=== PATIENT | male | born 1965 | race Caucasian/White ===

== ENCOUNTER 2016-08-04 10:23 | Emergency (ER) | payer MEDICAID ==
--- NOTE | 2016-08-04 10:35 | ER Document Report ---
ED Medical Screen (RME) - General Stated Complaint: BACK AND RIB PAIN Notes: patient states he woke up at 2am today with right flank pain. denies pyuria, hematuria. Denies h/o kidney problems, kidney stones. denies trauma, accident, fall. Took tramadol for pain this am at 2am and 7am. denies heavy lifting, moving furniture. denies UI, SI, saddle anesthesia Peripheral neuropathy, DM I have greeted and performed a rapid initial assessment of this patient. A comprehensive ED assessment and evaluation of the patient, analysis of test results and completion of the medical decision making process will be conducted by additional ED providers. TRAVEL OUTSIDE OF THE [place] IN LAST 30 DAYS: No - Related Data Allergies/Adverse Reactions: naproxen Allergy (Mild, Verified 06/06/16 11:45) Hives gabapentin Allergy (Verified 08/04/16 10:31) Past Medical History - Past Medical History Cardiac Medical History: Reports: Hx Coronary Artery Disease, Hx Heart Attack, Hx Hypertension Denies: Hx Congestive Heart Failure, Hx Hypercholesterolemia Pulmonary Medical History: Reports: Hx COPD Past Surgical History: Reports: Hx Cardiac Catheterization, Hx Cardiac Surgery - CABG, STENTS, Hx Coronary Artery Bypass Graft - Three-vessel bypass on 2013, Hx Coronary Stent - Patient received stents before and after his bypass surgery, Hx Orthopedic Surgery - L KNEE arthroscopic surgery 2 Physical Exam - Vital signs Vitals: Temp Pulse Resp BP Pulse Ox 97.3 F 70 16 119/77 98 08/04/16 10:28 08/04/16 10:28 08/04/16 10:08/04/16 10:28 08/04/16 10:28 Course - Vital Signs Vital signs: Temp Pulse Resp BP Pulse Ox 97.3 F 70 16 119/77 98 08/04/16 10:28 08/04/16 10:28 08/04/16 10:28 08/04/16 10:28 08/04/16 10:28
[2016-08-04 11:01] LABS: APPEARANCE,URINE SLIGHTLY-CLOUDY; BILIRUBIN,URINE NEGATIVE (NEGATIVE); GLUCOSE, URINE NEGATIVE (NEGATIVE); KETONES,URINE NEGATIVE (NEGATIVE); LEUKOCYTE ESTERASE,URINE NEGATIVE (NEGATIVE); NITRITE,URINE NEGATIVE (NEGATIVE); PROTEIN,URINE 100 mg/dL (NEGATIVE); URINE SPECIFIC GRAVITY 1.021; UROBILINOGEN,URINE NEGATIVE mg/dL (<2.0)
--- NOTE | 2016-08-04 14:26 | ER Document Report ---
ED General - General Chief Complaint: Back Pain Stated Complaint: BACK AND RIB PAIN Mode of Arrival: Ambulatory Information source: Patient Notes: Patient is a 50 yo male who presents with right mid back pain that started suddenly this morning at 2 AM. He states he got up to urinate but this did not relieve the pain. He states he took a tramadol at 2 AM which did ease the pain but it returned around 7 AM so he took another tramadol. He states he has had pain like this before but it has not lasted this long. He also reports an episode of dizziness while getting outpatient lab work done because his doctor was concerned about his potassium - his follow-up is on Monday of next week. Denies fever, chills, headaches, changes in vision, chest pain, SOB, abdominal pain, n/v/d, pyuria, hematuria, dysuria. TRAVEL OUTSIDE OF THE [place] IN LAST 30 DAYS: No - Related Data Allergies/Adverse Reactions: naproxen Allergy (Mild, Verified 06/06/16 11:45) Hives gabapentin Allergy (Verified 08/04/16 10:31) Past Medical History - Social History Smoking Status: Never Smoker Chew tobacco use (# tins/day): No Frequency of alcohol use: None Drug Abuse: None Family History: Reviewed & Not Pertinent Patient has suicidal ideation: No Patient has homicidal ideation: No - Past Medical History Cardiac Medical History: Reports: Hx Coronary Artery Disease, Hx Heart Attack, Hx Hypertension Denies: Hx Congestive Heart Failure, Hx Hypercholesterolemia Pulmonary Medical History: Reports: Hx COPD Renal/ Medical History: Denies: Hx Peritoneal Dialysis Past Surgical History: Reports: Hx Cardiac Catheterization, Hx Cardiac Surgery - CABG, STENTS, Hx Coronary Artery Bypass Graft - Three-vessel bypass on 2013, Hx Coronary Stent - Patient received stents before and after his bypass surgery, Hx Orthopedic Surgery - L KNEE arthroscopic surgery 2 Review of Systems - Review of Systems Constitutional: See HPI EENT: No symptoms reported Cardiovascular: No symptoms reported Respiratory: No symptoms reported Gastrointestinal: No symptoms reported Genitourinary: No symptoms reported Male Genitourinary: No symptoms reported Musculoskeletal: See HPI Skin: No symptoms reported Hematologic/Lymphatic: No symptoms reported Neurological/Psychological: See HPI Physical Exam - Vital signs Vitals: Temp Pulse Resp BP Pulse Ox 97.3 F 70 16 119/77 98 08/04/16 10:28 08/04/16 10:28 08/04/16 10:28 08/04/16 10:28 08/04/16 10:28 Interpretation: Normal - Notes Notes: PHYSICAL EXAM: CONSTITUTIONAL: Alert and oriented, well-appearing and in no acute distress. Appears comfortable. HENT: Normocephalic, atraumatic. Moist mucous membranes. EYES: Pupils equal round and reactive to light, EOM intact. Sclera anicteric, conjunctiva are normal. No entrapment. NECK: supple without lymphadenopathy. ROM intact. HEART: Regular rate and rhythm without murmurs. LUNGS: CTAB and equal. No wheezes, rales or rhonchi. GI: Normactive bowel sounds. Nontender, non-distended. No organomegaly. no CVAT. BACK: tender to palpation in mid thoracic musculature with paraspinous spasm, 5+ /5 strengths, DTRs 2+, SLR -. EXTREMITIES: Normal range of motion, no pitting edema. No cyanosis. Cap Refill < 3 seconds. NEURO: Cranial nerves grossly intact. Normal sensory/motor exams. PSYCH: Normal mood, normal affect. SKIN: Warm and dry. Normal turgor. No rashes or lesions noted. Course - Re-evaluation Re-evalutation: 08/04/16 16:07 Patient seen and examined. No neuro deficits, muscles spasms noted to mid- thoracic right side musculature. No midline tenderness. Based on exam, low suspicion for cauda equine syndrome or central canal syndrome. Given PO robaxin here. lab work obtained - CBC/BMP unremarkable. UA unremarkable. Discussed results with patient. Discharged home in stable condition. Follow-up with PMD. - Vital Signs Vital signs: Temp Pulse Resp BP Pulse Ox 97.3 F 70 16 119/77 98 08/04/16 10:28 08/04/16 10:28 08/04/16 14:34 08/04/16 10:28 08/04/16 10:28 - Laboratory Result Diagrams: 08/04/16 14:40 08/04/16 14:40 Laboratory results interpreted by me: 08/04/16 08/04/16 10:40 14:40 RBC 3.91 L Hgb 12.5 L Hct 36.5 L RDW 16.0 H Urine Protein 100 H Discharge - Discharge Clinical Impression: Muscle spasm of back Back pain Qualifiers: Back pain location: thoracic back pain Chronicity: acute Back pain laterality: right Qualified Code(s): M54.6 - Pain in thoracic spine Condition: Stable Disposition: HOME, SELF-CARE Additional Instructions: Continue to take tramadol as directed. LOW BACK PAIN: Three out of every four people will have an episode of disabling back pain during their lifetime. Most commonly the pain is due to straining of the muscles and ligaments in the low back. Usual treatment includes: (1) Rest on a firm surface. Avoid lying on your stomach. (2) Ice pack the painful area. After a few days, gentle heat may be used intermittently to relax the area, or ice packs can be continued. (3) Medication may be needed -- muscle relaxers and antiinflammatory medicines are commonly used. (4) As the back improves, exercises are prescribed to strengthen the back and abdominal muscles. Your doctor will advise you on the proper care for your back at each stage in your recovery. You may be better in a few days -- or healing may take several weeks. If new symptoms of a "herniated disc" (radiation of pain, numbness, or tingling down the back of the leg or weakness in the leg) occur, you should be re-examined. Further testing may be necessary. MUSCLE RELAXERS: Muscle relaxing medications are usually prescribed for acute muscle spasm or injury to the neck and back. They are often combined with antiinflammatory pain medication for increased relief. You may stop the muscle relaxer when the pain and stiffness have improved. Start the medication again if spasms recur. Muscle relaxers may cause drowsiness, especially with the first dose. Do not operate machinery or drive while under the effects of the medication. Most muscle relaxers last up to 24 hours. Do not combine the medication with alcohol. ICE PACKS: Apply ice packs frequently against the painful area. Many different schedules are recommended, such as "20 minutes on, 20 minutes off" or "one hour ice, two hours rest." If you need to work, you may need to go longer between ice treatments. You should plan to have the area ice packed AT LEAST one fourth of the time. The ice should be applied over the wrap, tape, or splint, or over a layer of cloth -- not directly against the skin. Some ice bags have a built-in cloth and can be put directly on the skin. WARM PACKS: After approximately two days, apply gentle heat (such as a heating pad or hot water bottle) for about 20 to 30 minutes about every two hours -- at least four times daily. Warmth and elevation will help you make a more rapid recovery , and will ease the pain considerably. Do not use HOT heat, and never apply heat for longer than 30 minutes. The continuous heat can invisibly damage skin and muscles -- even when no burn is seen on the surface. Damaged muscles can make you MORE sore. FOLLOW-UP CARE: If you have been referred to a physician for follow-up care, call the physician s office for an appointment as you were instructed or within the next two days. If you experience worsening or a significant change in your symptoms, notify the physician immediately or return to the Emergency Department at any time for re-evaluation. Prescriptions: Methocarbamol [Robaxin 500 mg Tablet] 500 mg PO TID #20 tablet Referrals: CHICHO GREEN MD [Primary Care Provider] - Follow up in 3-5 days
[2016-08-04 14:58] LABS: ABSOLUTE BASOPHILS # (AUTO) 0.1 10^3/uL (0.0-0.2); ABSOLUTE EOSINOPHILS # (AUTO) 0.1 10^3/uL (0.0-0.6); ABSOLUTE LYMPHOCYTES (AUTO) 1.2 10^3/uL (0.5-4.7); ABSOLUTE MONOCYTES (AUTO) 0.5 10^3/uL (0.1-1.4); ABSOLUTE NEUT (AUTO) 3.7 10^3/uL (1.7-8.2); BASOPHILS % (AUTO) 1.1 % (0-2); EOSINOPHILS % (AUTO) 2.6 % (0-6); HEMATOCRIT 36.5 % (37.9-51.0); HEMOGLOBIN 12.5 g/dL (13.5-17.0); LYMPHOCYTES % (AUTO) 20.8 % (13-45); MEAN CORPUSCULAR HEMOGLOBIN 31.9 pg (27.0-33.4); MEAN CORPUSCULAR HGB CONC 34.2 g/dL (32.0-36.0); MEAN CORPUSCULAR VOLUME 93 fl (80-97); MONOCYTES % (AUTO) 9.1 % (3-13); RED BLOOD COUNT 3.91 10^6/uL (4.35-5.55); SEGMENTED NEUTROPHILS % (AUTO) 66.4 % (42-78); WHITE BLOOD COUNT 5.6 10^3/uL (4.0-10.5)
[2016-08-04] MEDS ORDERED: METHOCARBAMOL 500 MG TABLET PO ONE (15:17)
[2016-08-04 15:22] LABS: ANION GAP 10 (5-19); BLOOD UREA NITROGEN 16 mg/dL (7-20); CALCIUM 9.4 mg/dL (8.4-10.2); CARBON DIOXIDE 27 mmol/L (22-30); CHLORIDE 101 mmol/L (98-107); GLUCOSE 93 mg/dL (75-110); POTASSIUM 4.5 mmol/L (3.6-5.0); SODIUM 138.1 mmol/L (137-145)
[2016-08-04 17:08] VITALS: BP 120/78
== END 2016-08-04 17:08 | disposition home or self-care (01) ==
LOC: ER 10:23
DX: M62.830 Muscle spasm of back (principal); M54.6 Pain in thoracic spine; R42 Dizziness and giddiness; I25.10 Atherosclerotic heart disease of native coronary artery without angina pectoris; I25.2 Old myocardial infarction; I10 Essential (primary) hypertension; Z88.8 Allergy status to other drugs, medicaments and biological substances; Z88.6 Allergy status to analgesic agent; J44.9 Chronic obstructive pulmonary disease, unspecified; Z95.1 Presence of aortocoronary bypass graft; Z98.61 Coronary angioplasty status
CPT/HCPCS: 99283; 36415; 85025; 80048; 81001; 72070; J3490

== ENCOUNTER → 2016-08-04 | Outpatient (CLI) | payer MEDICAID ==
[2016-08-04 11:30] LABS: ANION GAP 12 (5-19); BLOOD UREA NITROGEN 16 mg/dL (7-20); CALCIUM 9.6 mg/dL (8.4-10.2); CARBON DIOXIDE 25 mmol/L (22-30); CHLORIDE 101 mmol/L (98-107); CREATININE RESULT 0.92 mg/dL (0.52-1.25); GLUCOSE 95 mg/dL (75-110); POTASSIUM 5.4 mmol/L (3.6-5.0); SODIUM 137.9 mmol/L (137-145)
== END ==
LOC: OD 09:41
PROVIDERS: ATTEND Physician Assistant
DX: E87.5 Hyperkalemia (principal)
CPT/HCPCS: 36415; 80048

== ENCOUNTER 2016-09-16 10:08 | Emergency (ER) | payer MEDICAID ==
[2016-09-16] MEDS ORDERED: ASPIRIN 81 MG TABLET, CHEWABLE PO ONE (10:41)
--- NOTE | 2016-09-16 10:43 | ER Document Report ---
ED Medical Screen (RME) - General Stated Complaint: CHEST PAIN Notes: Patient complains of chest pain with shortness of breath that started this morning. He also complains of disorientation. Does have a history of heart problems. Patient is diabetic and has a history of high blood pressure. Last FL was in 2013. History of bypass surgery. Patient took 81 mg aspirin this morning. I have greeted and performed a rapid initial assessment of this patient. A comprehensive ED assessment and evaluation of the patient, analysis of test results and completion of the medical decision making process will be conducted by additional ED providers. TRAVEL OUTSIDE OF THE [place] IN LAST 30 DAYS: No - Related Data Allergies/Adverse Reactions: naproxen Allergy (Mild, Verified 09/16/16 10:40) trouble breathing OSCAR Inhibitors Allergy (Verified 09/16/16 10:40) cough gabapentin Allergy (Verified 09/16/16 10:40) Hallucinations Past Medical History - Past Medical History Cardiac Medical History: Reports: Hx Coronary Artery Disease, Hx Heart Attack, Hx Hypertension Denies: Hx Congestive Heart Failure, Hx Hypercholesterolemia Pulmonary Medical History: Reports: Hx COPD Renal/ Medical History: Denies: Hx Peritoneal Dialysis Past Surgical History: Reports: Hx Cardiac Catheterization, Hx Cardiac Surgery - CABG, STENTS, Hx Coronary Artery Bypass Graft - Three-vessel bypass on 2013, Hx Coronary Stent - Patient received stents before and after his bypass surgery, Hx Orthopedic Surgery - L KNEE arthroscopic surgery 2 Physical Exam - Vital signs Vitals: Temp Pulse Resp BP Pulse Ox 98.6 F 73 20 147/95 H 95 09/16/16 10:36 09/16/16 10:36 09/16/16 10:36 09/16/16 10:36 09/16/16 10:36 - Cardiovascular Rhythm: Regular Heart sounds: Normal auscultation Course - Vital Signs Vital signs: Temp Pulse Resp BP Pulse Ox 98.6 F 73 20 147/95 H 95 09/16/16 10:36 09/16/16 10:36 09/16/16 10:36 09/16/16 10:36 09/16/16 10:36
--- NOTE | 2016-09-16 10:59 | EKG REPORT ---
SEVERITY:- ABNORMAL ECG - SINUS RHYTHM : Confirmed by: Reed Pedroza 16-Sep-2016 10:58:52
[2016-09-16 11:17] LABS: ABSOLUTE EOSINOPHILS # (AUTO) 0.1 10^3/uL (0.0-0.6); ABSOLUTE LYMPHOCYTES (AUTO) 1.1 10^3/uL (0.5-4.7); ABSOLUTE MONOCYTES (AUTO) 0.5 10^3/uL (0.1-1.4); ABSOLUTE NEUT (AUTO) 4.1 10^3/uL (1.7-8.2); BASOPHILS % (AUTO) 0.8 % (0-2); EOSINOPHILS % (AUTO) 1.8 % (0-6); HEMATOCRIT 36.5 % (37.9-51.0); HEMOGLOBIN 12.5 g/dL (13.5-17.0); LYMPHOCYTES % (AUTO) 19.4 % (13-45); MEAN CORPUSCULAR HEMOGLOBIN 32.1 pg (27.0-33.4); MEAN CORPUSCULAR HGB CONC 34.3 g/dL (32.0-36.0); MEAN CORPUSCULAR VOLUME 94 fl (80-97); RED BLOOD COUNT 3.89 10^6/uL (4.35-5.55); RED CELL DISTRIBUTION WIDTH 15.1 % (11.5-14.0); WHITE BLOOD COUNT 5.9 10^3/uL (4.0-10.5)
[2016-09-16 11:26] LABS: PROTHROMBIN TIME 13.3 SEC (11.4-15.4)
[2016-09-16 11:50] LABS: ANION GAP 12 (5-19)
[2016-09-16 11:51] LABS: ALANINE AMINOTRANSFERASE 35 U/L (21-72); ALBUMIN 4.5 g/dL (3.5-5.0); ALKALINE PHOSPHATASE 72 U/L (38-126); ASPARTATE AMINO TRANSFERASE 22 U/L (17-59); BILIRUBIN,DIRECT 0.2 mg/dL (0.0-0.4); BLOOD UREA NITROGEN 13 mg/dL (7-20); CALCIUM 9.4 mg/dL (8.4-10.2); CARBON DIOXIDE 24 mmol/L (22-30); CHLORIDE 103 mmol/L (98-107); CREATINE KINASE 64 U/L (55-170); CREATININE RESULT 0.72 mg/dL (0.52-1.25); GLUCOSE 99 mg/dL (75-110); POTASSIUM 4.6 mmol/L (3.6-5.0); SODIUM 139.3 mmol/L (137-145); TOTAL PROTEIN 7.7 g/dL (6.3-8.2)
[2016-09-16 11:57] LABS: CREATINE KINASE MB 0.61 ng/mL (<4.55)
[2016-09-16 11:59] LABS: TROPONIN I < 0.012 ng/mL
[2016-09-16 13:48] LABS: APPEARANCE,URINE CLEAR; BILIRUBIN,URINE NEGATIVE (NEGATIVE); GLUCOSE, URINE NEGATIVE (NEGATIVE); KETONES,URINE NEGATIVE (NEGATIVE); LEUKOCYTE ESTERASE,URINE NEGATIVE (NEGATIVE); NITRITE,URINE NEGATIVE (NEGATIVE); PROTEIN,URINE 30 mg/dL (NEGATIVE); UROBILINOGEN,URINE NEGATIVE mg/dL (<2.0)
--- NOTE | 2016-09-16 13:54 | ER Document Report ---
ED General - General Chief Complaint: Chest Pain Stated Complaint: CHEST PAIN TRAVEL OUTSIDE OF THE [place] IN LAST 30 DAYS: No - Related Data Allergies/Adverse Reactions: naproxen Allergy (Mild, Verified 09/16/16 10:40) trouble breathing OSCAR Inhibitors Allergy (Verified 09/16/16 10:40) cough gabapentin Allergy (Verified 09/16/16 10:40) Hallucinations Past Medical History - Social History Smoking Status: Current Every Day Smoker Chew tobacco use (# tins/day): No Frequency of alcohol use: None Drug Abuse: None Family History: Reviewed & Not Pertinent Patient has suicidal ideation: No Patient has homicidal ideation: No - Past Medical History Cardiac Medical History: Reports: Hx Coronary Artery Disease, Hx Heart Attack, Hx Hypertension Denies: Hx Congestive Heart Failure, Hx Hypercholesterolemia Pulmonary Medical History: Reports: Hx COPD Renal/ Medical History: Denies: Hx Peritoneal Dialysis Past Surgical History: Reports: Hx Cardiac Catheterization, Hx Cardiac Surgery - CABG, STENTS, Hx Coronary Artery Bypass Graft - Three-vessel bypass on 2013, Hx Coronary Stent - Patient received stents before and after his bypass surgery, Hx Orthopedic Surgery - L KNEE arthroscopic surgery 2 Physical Exam - Vital signs Vitals: Temp Pulse Resp BP Pulse Ox 98.6 F 73 20 147/95 H 95 09/16/16 10:36 09/16/16 10:36 09/16/16 10:36 09/16/16 10:36 09/16/16 10:36 Course - Re-evaluation Re-evalutation: 09/16/16 13:59 Given that 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 The patient and I have discussed the diagnosis and risks , and we agree with discharging home with close follow-up. We also discussed returning to the Emergency Department immediately if new or worsening symptoms occur. We have discussed the symptoms which are most concerning (e.g., bloody sputum, worsening pain or shortness of breath) that necessitate immediate return. - Vital Signs Vital signs: Temp Pulse Resp BP Pulse Ox 98.6 F 73 16 133/80 H 96 09/16/16 10:36 09/16/16 10:36 09/16/16 13:01 09/16/16 13:01 09/16/16 13:01 - Laboratory Result Diagrams: 09/16/16 10:57 09/16/16 10:57 Laboratory results interpreted by me: 09/16/16 09/16/16 10:57 13:35 RBC 3.89 L Hgb 12.5 L Hct 36.5 L RDW 15.1 H Urine Protein 30 H - Diagnostic Test Radiology reviewed: Image reviewed, Reports reviewed - EKG Interpretation by Me EKG shows normal: Sinus rhythm, [place], Intervals, QRS Complexes Discharge - Discharge Clinical Impression: Shortness of breath Chest pain Qualifiers: Chest pain type: unspecified Qualified Code(s): R07.9 - Chest pain, unspecified Condition: Stable Disposition: HOME, SELF-CARE Instructions: Chest Pain of Unclear Cause ([facility]) Referrals: CHICHO GREEN MD [Primary Care Provider] - Follow up tomorrow
[2016-09-16 15:06] VITALS: BP 149/82
== END 2016-09-16 15:06 | disposition home or self-care (01) ==
LOC: ER 10:08
DX: R07.9 Chest pain, unspecified (principal); R06.02 Shortness of breath; F17.200 Nicotine dependence, unspecified, uncomplicated
CPT/HCPCS: 36415; 71010; 80053; 81001; 82550; 82553; 84484; 85025; 85610; 93005; 93010; 99285

== ENCOUNTER → 2016-11-17 | Outpatient (CLI) | payer MEDICAID ==
--- NOTE | 2016-11-17 15:01 | RADIOLOGY REPORT (SQ) ---
EXAM DESCRIPTION: CTA CHEST COMPLETED DATE/TIME: 11/17/2016 2:25 pm REASON FOR STUDY: SOB (R06.02) R06.02 SHORTNESS OF BREATH COMPARISON: None. TECHNIQUE: CT scan of the chest performed using helical scanning technique with dynamic intravenous contrast injection. Images reviewed with lung, soft tissue and bone windows. Reconstructed coronal and sagittal MPR images reviewed. Additional 3 dimensional post-processing performed to develop Maximal Intensity Projection images ([place] P). All images stored on PACS. All CT scanners at this facility use dose modulation, iterative reconstruction, and/or weight based d osing when appropriate to reduce radiation dose to as low as reasonably achievable (ALARA). [facility]: Dose Right [facility]: CareDose [facility]: Dose Right [facility]: Teradose 4D [facility]: TimeGenius CONTRAST TYPE AND DOSE: 79 mL Isovue 370- low osmolar. RENAL FUNCTION: Creatinine 0.5 RADIATION DOSE: 34.32 mGy. LIMITATIONS: None. FINDINGS: LUNGS AND PLEURA: No masses, infiltrates, pneumothorax. No pleural effusions, calcificati ons. AORTA AND GREAT VESSELS: No aneurysm or dissection. HEART: No pericardial effusion. PULMONARY ARTERIES: No emboli visualized in the main pulmonary arteries or the segmental branches. HILAR AND MEDIASTINAL STRUCTURES: No identified masses or abnormal nodes. HARDWARE: Sternotomy wires UPPER ABDOMEN: Gallstones. Right upper pole renal calculus. THYROID AND OTHER SOFT TISSUES: No masses. No adenopathy. BONES: There are bridging osteophytes in the lower thoracic and upper lumbar spine. 3D MIPS: Confirm above findings. OTHER: No other significant finding. IMPRESSION: 1. There is no evidence of pulmonary emboli. 2. Cholelithiasis. 3. Right renal calculus. 4. Thoracolumbar spondylosis. TECHNICAL DOCUMENTATION: JOB ID: [id number] Quality ID # [id number]: Final reports with documentation of one or more dose reduction techniques (e.g., Au tomated exposure control, adjustment of the mA and/or kV according to patient size, use of iterative reconstruction technique) 2010 [employer]- All Rights Reserved
== END ==
LOC: RAD 13:34
PROVIDERS: ATTEND Family Medicine
DX: R06.02 Shortness of breath (principal); K80.20 Calculus of gallbladder without cholecystitis without obstruction; N20.0 Calculus of kidney; M47.895 Other spondylosis, thoracolumbar region
CPT/HCPCS: 71275; 82565

== ENCOUNTER 2016-11-29 07:45 | Day surgery (SDC) | payer MEDICAID ==
[~2016-11-29 07:45] MED LIST: CHONDR SU A NA/HYALUR INTRAOC KIT (SURGICARE) ONE; KETOROLAC TROMETHAMINE 0.45% 4 DROP/0.4 ML DROPERETTE OD PRN; LIDOCAINE 1% INJ-PF (10 MG/ML) 30 ML SDV ONE; PHENYLEPHRINE/KETOROLAC 1%-0.3% 4 ML VIAL ONE; TETRACAINE HCL 0.5% OPH SOLN 0.6 ML DROPERETTE OD PRN
[2016-11-29] MEDS: TETRACAINE HCL 0.5% OPH SOLN 2 ML OD PRN ×3 (08:35→09:30)
[2016-11-29] MEDS: CYCLOPENTOLATE 0.2%/PHENYLEPHRINE 1% OPH SOLN 2 ML OD PRN ×3 (08:35→09:00)
[2016-11-29] MEDS: TROPICAMIDE 1% OPH SOLN 3 ML OD PRN ×3 (08:36→09:00)
[2016-11-29] MEDS: BESIFLOXACIN HCL 0.6% OPH SUSP 5 ML BOTTLE OD PRN ×4 (08:37→09:53)
[2016-11-29] MEDS ORDERED: MIDAZOLAM 2 MG/2 ML INJ ONE (09:00)
[2016-11-29] MEDS ORDERED: EPINEPHRINE INJ/PF 1 MG/1 ML AMPULE ONE (09:03)
--- NOTE | 2016-11-29 10:20 | [facility] DISCHARGE SUMMARY E ---
[facility] Discharge Summary NAME: TANIA LIRIANO AGE: 51Y ADMITTED: 11/29/2016 DISCHARGED: 11/29/2016 BRIEF HISTORY: This is a 51-year-old male who underwent cataract extraction of the right eye. DIAGNOSIS: Cataract, right eye. INDICATIONS FOR SURGERY: He underwent surgery because he was having difficulty driving at night secondary to glare from headlights. DISCHARGE INSTRUCTIONS AND FOLLOWUP: He is to be on a regular diet. No bending at his waist. No heavy lifting. He is to use his Besivance, Ilevro and Durezol at 3:00 p.m. and 8:00 p.m. and sleep with a rigid shield, and I will see him for his 1-day postoperative tomorrow. DICTATING PHYSICIAN: THANH MAYORGA M.D. [id number] PHY#: [id number] ID: [id number] JOB#: [id number] ACCT: [id number] cc:THANH MAYORGA M.D. >
--- NOTE | 2017-01-05 09:12 | [facility] OPERATIVE REPORT E ---
[facility] Operative Report NAME: TANIA LIRIANO AGE: 51Y DATE OF SURGERY: 11/29/2016 ROOM: PREOPERATIVE DIAGNOSIS: Cataract, right eye. POSTOPERATIVE DIAGNOSIS: Cataract, right eye. OPERATION: Cataract extraction with intraocular lens implant of the right eye. SURGEON: THANH MAYORGA M.D. ANESTHESIA: Topical. DESCRIPTION OF THE PROCEDURE: After obtaining appropriate consent, the patient's right eye was prepped and draped in sterile fashion as well as the surgeon in a sterile manner and cataract surgery was started. First a paracentesis blade was used to make a small side-port incision. Viscoelastic was used to inflate the anterior chamber. Next a 2.4 mm incision was made with the paracentesis blade. A continuous capsulorrhexis incision was made using a cystotome and Utrata forceps. Following this hydrodissection was carried out to make the lens fully loose and mobile and it was rotated 90 degrees. Following this, a vbvflc-ubv-bllasec technique was used to phacoemulsify the lens with a CDE of 4.32. The remaining cortex was removed with irrigation/aspiration. Provisc was instilled into the capsular bag to inflate the bag. A SN60WF, 7.0 diopter lens was placed. The remaining viscoelastic material was removed with irrigation/aspiration. Following this, a 10-0 nylon suture was used to close the incision and it was found to be watertight. Vigamox was instilled in the eye and a protective shield was placed over the eye. The patient returned to the postoperative recovery in stable condition. DICTATING PHYSICIAN: THANH MAYORGA M.D. [id number] PHY#: [id number] ID: [id number] JOB#: [id number] ACCT: [id number] cc:THANH MAYORGA M.D. >
== END 2016-11-29 10:34 | disposition home or self-care (01) ==
LOC: SC 07:45
PROVIDERS: ATTEND Internal Medicine
PROC: 08RJ3JZ Replacement of Right Lens with Synthetic Substitute, Percutaneous Approach (ICD-10-PCS; principal; 2016-11-29 09:00)
DX: H25.13 Age-related nuclear cataract, bilateral (principal); H57.03 Miosis; I10 Essential (primary) hypertension; E11.9 Type 2 diabetes mellitus without complications; J44.9 Chronic obstructive pulmonary disease, unspecified; H43.813 Vitreous degeneration, bilateral; E66.9 Obesity, unspecified; G60.9 Hereditary and idiopathic neuropathy, unspecified; I73.9 Peripheral vascular disease, unspecified; G40.909 Epilepsy, unspecified, not intractable, without status epilepticus; Z79.891 Long term (current) use of opiate analgesic; Z79.51 Long term (current) use of inhaled steroids; Z87.891 Personal history of nicotine dependence; Z79.899 Other long term (current) drug therapy; Z88.6 Allergy status to analgesic agent; Z99.81 Dependence on supplemental oxygen; Z68.42 Body mass index [BMI] 45.0-49.9, adult; Z79.84 Long term (current) use of oral hypoglycemic drugs
CPT/HCPCS: 82962; 66984; V2632; J2250; J3490 ×4; J0171; 142; C9447

== ENCOUNTER → 2016-12-21 | Outpatient (CLI) | payer MEDICAID ==
--- NOTE | 2016-12-21 14:11 | RADIOLOGY REPORT (SQ) ---
EXAM DESCRIPTION: U/S ABDOMEN LIMITED W/O DOP COMPLETED DATE/TIME: 12/21/2016 11:12 am REASON FOR STUDY: GALLSTONES K80.20 CALCULUS OF GALLBLADDER W/O CHOLECYSTITIS W/O OBSTRUC COMPARISON: CT chest 11/17/2016 TECHNIQUE: Dynamic and static grayscale images acquired of the abdomen and recorded on PACS. Additio nal selected color Doppler and spectral images recorded. LIMITATIONS: Body habitus, midline bowel gas FINDINGS: PANCREAS: Midline pancreas unremarkable LIVER: Normal size, diffuse increased echogenicity from fatty infiltration LIVER VASCULATURE: Normal directional flow of the main portal vein and hepatic veins. GALLBLADDER: Stones are present without gallbladder wall thickening or pericholecystic fluid. ULTRASOUND-DETECTED SOL'S SIGN: Negative. INTRAHEPATIC DUCTS AND COMMON DUCT: CBD and intrahepatic ducts normal caliber. No filling defects. D istal most common duct not well seen due to duodenum gas INFERIOR VENA CAVA: Not well seen AORTA: Not well seen RIGHT KIDNEY: Normal size. Normal echogenicity. No solid or suspicious masses. No hydronephrosis. No calcifications. PERITONEAL AND RIGHT PLEURAL SPACE: No ascites or effusions. OTHER: No other significant findings. IMPRESSION: Gallstones without gallbladder wall thickening or pericholecystic fluid. Fatty infiltration of the liver TECHNICAL DOCUMENTATION: JOB ID: [id number]- All Rights Reserved
== END ==
LOC: RAD 10:13
PROVIDERS: ATTEND Internal Medicine Gastroenterology
DX: K80.20 Calculus of gallbladder without cholecystitis without obstruction (principal)
CPT/HCPCS: 76705

== ENCOUNTER 2016-12-22 10:18 | Day surgery (SDC) | payer MEDICAID ==
[~2016-12-22 10:18] MED LIST changes: -CHONDR SU A NA/HYALUR INTRAOC KIT (SURGICARE) ONE; -KETOROLAC TROMETHAMINE 0.45% 4 DROP/0.4 ML DROPERETTE OD PRN; +KETOROLAC TROMETHAMINE 0.45% 4 DROP/0.4 ML DROPERETTE OS PRN; -LIDOCAINE 1% INJ-PF (10 MG/ML) 30 ML SDV ONE; -PHENYLEPHRINE/KETOROLAC 1%-0.3% 4 ML VIAL ONE; -TETRACAINE HCL 0.5% OPH SOLN 0.6 ML DROPERETTE OD PRN
[2016-12-22] MEDS ORDERED: PHENYLEPHRINE/KETOROLAC 1%-0.3% 4 ML VIAL ONE (10:59)
[2016-12-22] MEDS ORDERED: CHONDR SU A NA/HYALUR INTRAOC KIT (SURGICARE) ONE (11:00)
[2016-12-22] MEDS ORDERED: LIDOCAINE 1% INJ-PF (10 MG/ML) 30 ML SDV ONE (11:00)
[2016-12-22] MEDS: TETRACAINE HCL 0.5% OPH SOLN 2 ML OS PRN ×3 (11:06→11:40)
[2016-12-22] MEDS: BESIFLOXACIN HCL 0.6% OPH SUSP 5 ML BOTTLE OS PRN ×4 (11:06→12:02)
[2016-12-22] MEDS: TROPICAMIDE 1% OPH SOLN 3 ML OS PRN ×3 (11:06→11:20)
[2016-12-22] MEDS: CYCLOPENTOLATE 0.2%/PHENYLEPHRINE 1% OPH SOLN 2 ML OS PRN ×3 (11:06→11:20)
[2016-12-22] MEDS ORDERED: MIDAZOLAM 2 MG/2 ML INJ ONE (11:38)
--- NOTE | 2016-12-23 06:19 | [facility] DISCHARGE SUMMARY E ---
[facility] Discharge Summary NAME: TANIA LIRIANO AGE: 51Y ADMITTED: 12/22/2016 DISCHARGED: 12/22/2016 HOSPITAL COURSE: This is a 51-year-old male who underwent cataract extraction of the left eye. DIAGNOSIS: CATARACT, LEFT EYE. INDICATION: He underwent surgery because he has been having difficulty with glare from headlights, making it difficult to drive at night. DISCHARGE INSTRUCTIONS: He should be on a regular diet; no bending at his waist; no heavy lifting; he is to use Besivance, Ilevro and Durezol at 3:00 p.m. and 8:00 p.m.; and, sleep with a rigid shield. I will see him for his 1-day postoperative tomorrow. DICTATING PHYSICIAN: THANH MAYORGA M.D. [id number] PHY#: [id number] ID: [id number] JOB#: [id number] ACCT: [id number] cc:THANH MAYORGA M.D. >
--- NOTE | 2016-12-23 06:33 | [facility] OPERATIVE REPORT E ---
[facility] Operative Report NAME: TANIA LIRIANO AGE: 51Y DATE OF SURGERY: 12/22/2016 ROOM: PREOPERATIVE DIAGNOSIS: CATARACT, LEFT EYE. POSTOPERATIVE DIAGNOSIS: CATARACT, LEFT EYE. OPERATION: Cataract extraction with intraocular lens implant of the left eye. SURGEON: THANH MAYORGA M.D. ANESTHESIA: Topical. PROCEDURE: After obtaining appropriate consent, the patient's left eye was prepped and draped in sterile fashion as well as the surgeon in a sterile manner and cataract surgery was started. First a paracentesis blade was used to make a small side-port incision. Viscoelastic was used to inflate the anterior chamber. Next a 2.4 mm incision was made with the paracentesis blade. A continuous capsulorrhexis incision was made using a cystotome and Utrata forceps. Following this hydrodissection was carried out to make the lens fully loose and mobile and it was rotated 90 degrees. Following this, a njxpoa-pso-[id number] technique was used to phacoemulsify the lens with a CDE of 6.71. The remaining cortex was removed with irrigation/aspiration. Provisc was instilled into the capsular bag to inflate the bag. A SN60WF, 7.0 diopter lens was placed. The remaining viscoelastic material was removed with irrigation/aspiration. Following this, a 10-0 Nylon suture was used to close the incision and it was found to be watertight. Vigamox was instilled in the eye and a protective shield was placed over the eye. The patient returned to the postoperative recovery in stable condition. DICTATING PHYSICIAN: THANH MAYORGA M.D. [id number] PHY#: [id number] ID: [id number] JOB#: [id number] ACCT: [id number] cc:THANH MAYORGA M.D. >
== END 2016-12-22 12:40 | disposition home or self-care (01) ==
LOC: SC 10:18
PROVIDERS: ATTEND Internal Medicine
PROC: 08RK3JZ Replacement of Left Lens with Synthetic Substitute, Percutaneous Approach (ICD-10-PCS; principal; 2016-12-22 11:30)
DX: H25.12 Age-related nuclear cataract, left eye (principal); H57.03 Miosis; H40.89 Other specified glaucoma; Z96.1 Presence of intraocular lens; J44.9 Chronic obstructive pulmonary disease, unspecified; I10 Essential (primary) hypertension; E11.9 Type 2 diabetes mellitus without complications; K21.9 Gastro-esophageal reflux disease without esophagitis; I49.9 Cardiac arrhythmia, unspecified; Z79.51 Long term (current) use of inhaled steroids; Z79.899 Other long term (current) drug therapy; Z88.6 Allergy status to analgesic agent; Z88.8 Allergy status to other drugs, medicaments and biological substances; Z79.84 Long term (current) use of oral hypoglycemic drugs; Z99.81 Dependence on supplemental oxygen
CPT/HCPCS: 66984; 82962; V2632; J2250; J3490 ×4; C9447; 142

== ENCOUNTER 2017-01-26 11:59 | Observation (INO) | payer MEDICAID ==
[2017-01-26] MEDS ORDERED: ASPIRIN 81 MG TABLET, CHEWABLE PO ONE (12:04)
--- NOTE | 2017-01-26 12:10 | ER Document Report ---
ED Cardiac - General Information source: Patient TRAVEL OUTSIDE OF THE [place] IN LAST 30 DAYS: No - HPI Patient complains to provider of: Chest pain, Chest tightness Associated symptoms: Other - see above <IZABELA ROJAS - Last Filed: 01/26/17 15:28> <EDITH SMALL - Last Filed: 01/26/17 19:20> - General Stated Complaint: CHEST PAIN Time Seen by Provider: 01/26/17 12:04 Notes: Patient is a 51 year old male who presents to the ED with complaints of chest pain that is improved now. Patient was given Nitro and Aspirin while enroute via EMS. Patient states it feels like a pressure across his entire chest. Patient had a stress test and catheterization this year. His cath showed 2 25% blockages. Patient is on 2L of O2 at night time. Patient is on plavix. Patient also has SOB. Patient adds that he had numbness in his entire left lower extremity. Patient states that has improved but states he still has numbness in his left foot. Core Analyst: [facility] (IZABELA ROJAS) - Related Data Allergies/Adverse Reactions: naproxen Allergy (Mild, Verified 12/22/16 11:10) trouble breathing OSCAR Inhibitors Allergy (Verified 12/22/16 11:10) cough gabapentin Allergy (Verified 12/22/16 11:10) Hallucinations Home Medications: Current Home Medications Albuterol Sulfate [Albuterol Sulfate 2.5mg/3 mL] 1 vial IH Q4 PRN 01/26/17 [ History] Albuterol Sulfate [Proair HFA] 2 puff IH Q4 PRN 01/26/17 [History] Atorvastatin Calcium [Lipitor 40 mg Tablet] 40 mg PO QHS 01/26/17 [History] Budesonide/Formoterol Fumarate [Symbicort Hfa 160-4.5 Mcg Inhaler 6 gm] 2 puff IH Q12 01/26/17 [History] Clopidogrel Bisulfate [Plavix 75 mg Tablet] 75 mg PO DAILY 01/26/17 [History] Hydrochlorothiazide [Hydrodiuril 12.5 mg Capsule] 12.5 mg PO QAM 01/26/17 [ History] Levocetirizine Dihydrochloride [Xyzal] 5 mg PO DAILY 01/26/17 [History] Losartan Potassium [Cozaar 50 mg Tablet] 50 mg PO DAILY 01/26/17 [History] Metformin HCl [Glucophage] 500 mg PO BIDACBS 01/26/17 [History] Metoprolol Tartrate [Lopressor 100 mg Tablet] 100 mg PO Q12 01/26/17 [History] Potassium Chloride [Klor-Con 10 Meq Tablet.sa] 10 meq PO DAILY 01/26/17 [History ] Pregabalin [Lyrica 50 Mg Capsule] 50 mg PO DAILY 01/26/17 [History] Pregabalin [Lyrica 50 Mg Capsule] 50 mg PO DAILY 01/26/17 [History] Ranitidine HCl [Zantac] 300 mg PO QHS 01/26/17 [History] Ranolazine [Ranexa] 1,000 mg PO Q12 01/26/17 [History] Roflumilast [Daliresp 500 mcg Tablet] 500 mcg PO ASDIR PRN 01/26/17 [History] Sitagliptin Phos/Metformin HCl [Janumet 50-500 mg Tablet] 1 tab PO BIDACBS 01/26 [History] Tiotropium [place] [Spiriva Handihaler 5 Cap/Kit (18 Mcg/Cap)] 1 cap IH DAILY [History] Tramadol HCl [Ultram 50 mg Tablet] 50 mg PO Q12 01/26/17 [History] Past Medical History - General Information source: Patient - Social History Smoking Status: Unknown if Ever Smoked Family History: Reviewed & Not Pertinent - Past Medical History Cardiac Medical History: Reports: Hx Coronary Artery Disease, Hx Heart Attack - 2012,2013, Hx Hypertension Denies: Hx Congestive Heart Failure, Hx Hypercholesterolemia Pulmonary Medical History: Reports: Hx Asthma, Hx COPD Neurological Medical History: Reports: Hx Seizures - 3-4 MTHS AGO ( NEURO WORK UP) states from hypoxia when sleeping. Denies: Hx Cerebrovascular Accident Renal/ Medical History: Denies: Hx Peritoneal Dialysis GI Medical History: Denies: Hx Hepatitis, Hx Hiatal Hernia, Hx Ulcer Infectious Medical History: Denies: Hx Hepatitis Past Surgical History: Reports: Hx Cardiac Catheterization, Hx Cardiac Surgery - CABG, STENTS, Hx Coronary Artery Bypass Graft - Three-vessel bypass on 2013, Hx Coronary Stent - Patient received stents before and after his bypass surgery, Hx Open Heart Surgery, Hx Orthopedic Surgery - L KNEE arthroscopic surgery 2. Denies: Hx Pacemaker <IZABELA ROJAS - Last Filed: 01/26/17 15:28> Review of Systems - Review of Systems Constitutional: No symptoms reported EENT: No symptoms reported Cardiovascular: See HPI, Chest pain Respiratory: See HPI, Short of breath Gastrointestinal: No symptoms reported Genitourinary: No symptoms reported Male Genitourinary: No symptoms reported Musculoskeletal: No symptoms reported Skin: No symptoms reported Hematologic/Lymphatic: No symptoms reported Neurological/Psychological: See HPI, Numbness - left lower extremity <IZABELA ROJAS - Last Filed: 01/26/17 15:28> Physical Exam - General General appearance: Appears well, Alert In distress: None - HEENT Head: Normocephalic, Atraumatic Eyes: Normal Extraocular movements intact: Yes Pupils: PERRL - Respiratory Respiratory status: No respiratory distress Breath sounds: Normal - Cardiovascular Rhythm: Regular Heart sounds: Normal auscultation Murmur: No - Abdominal Inspection: Obese Tenderness: Nontender - Back Back: Normal - Extremities General upper extremity: Normal inspection, Normal ROM General lower extremity: Normal ROM, Other - altered light touch to left foot - Neurological Neuro grossly intact: Yes - Psychological Associated symptoms: Normal affect, Normal mood - Skin Skin Temperature: Warm Skin Moisture: Dry Skin Color: Normal Skin irregularity: other - scar on chest from previous cabbage <IZABELA ROJAS - Last Filed: 01/26/17 15:28> Course - Laboratory Result Diagrams: 01/26/17 12:10 01/26/17 12:10 - Consults Jeronimo Munoz Time consulted: 13:00 Dr. Justice Time consulted: 13:25 Dr. Butler Time consulted: 14:53 Dr. Ochoa Time consulted: 15:20 Dr. Rosenbaum Time consulted: 15:28 <IZABELA ROJAS - Last Filed: 01/26/17 15:28> - Laboratory Result Diagrams: 01/26/17 12:10 01/26/17 12:10 <EDITH SMALL - Last Filed: 01/26/17 19:20> - Re-evaluation Re-evalutation: 01/26/17 52-year-old male with a history of coronary artery disease and CABG who comes in complaining of chest pain. Patient had catheterization in June which did show some occlusion of his LAD but not anything to stand at that time. Patient was discussed with Dr. Justice who is covering for Dr. Kirby at [place]. Recommend the patient be ruled out. Due to negative troponin and no acute EKG changes, patient is able to state the facility. He is currently chest pain- free. Patient has been discussed with Dr. Ochoa. Discussed with Dr. Rosenbaum who recommended serial cardiac enzymes. Patient agrees with this plan. Stable time of admission. (EDITH SMALL) - Vital Signs Vital signs: Temp Pulse Resp BP Pulse Ox 97.6 F 61 12 128/79 H 98 01/26/17 18:30 01/26/17 18:30 01/26/17 18:34 01/26/17 18:34 01/26/17 18:34 - Laboratory Laboratory results interpreted by me: 01/26/17 01/26/17 12:10 12:10 RBC 3.68 L Hgb 12.3 L Hct 35.9 L MCV 98 H RDW 14.7 H Glucose 123 H Creatine Kinase 39 L - Consults [facility] Reason for consultation: 01/26/17 13:00 Called to discuss patient with Dr. Kirby. 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 (IZABELA ROJAS) Dr. Justice Reason for consultation: 01/26/17 13:25 Discussed patient. He does not need to be transferred unless patient would prefer to be transferred however there is no beds available at this time. ( IZABELA ROJAS) Dr. Butler Reason for consultation: 01/26/17 14:53 Discussed patient. Patient is accepted for admission. 01/26/17 15:12 Dr. Butler came to the ED to evaluated patient. Since patient is a Dr. Ochoa patient, I will call him for admission. (IZABELA ROJAS) Dr. Ochoa Reason for consultation: 01/26/17 15:20 Discussed patient. Patient is accepted for admission. He wants to me to call Dr. Rosenbaum. (IZABELA ROJAS) Dr. Rosenbaum Reason for consultation: 01/26/17 15:28 Discussed patient. He recommends serum enzymes. (IZABELA ROJAS) Discharge <IZABELA ROJAS - Last Filed: 01/26/17 15:28> - Discharge Admitting Provider: Ochoa Unit Admitted: IMCU <EDITH SMALL - Last Filed: 01/26/17 19:20> - Discharge Clinical Impression: Chest pain Qualifiers: Chest pain type: unspecified Qualified Code(s): R07.9 - Chest pain, unspecified CAD (coronary artery disease) Qualifiers: Coronary Disease-Associated Artery/Lesion type: unspecified vessel or lesion type [place] vs. transplanted heart: false pass heart Associated angina: angina presence unspecified Qualified Code(s): I25.10 - Atherosclerotic heart disease of false pass coronary artery without angina pectoris Condition: Stable Disposition: ADMITTED INPATIENT Scribe Attestation: 01/26/17 19:19 I personally performed the services described in the documentation, reviewed and edited the documentation which was dictated to the scribe in my presence, and it accurately records my words and actions. (EDITH SMALL) Scribe Documentation - Scribe Written by Kareye:: rowena Xiong, 01/26/2017, 1252 acting as scribe for :: Nanci <IZABELA ROJAS - Last Filed: 01/26/17 15:28>
[2017-01-26 12:22] LABS: ABSOLUTE EOSINOPHILS # (AUTO) 0.1 10^3/uL (0.0-0.6); ABSOLUTE MONOCYTES (AUTO) 0.4 10^3/uL (0.1-1.4); ABSOLUTE NEUT (AUTO) 4.5 10^3/uL (1.7-8.2); BASOPHILS % (AUTO) 0.8 % (0-2); EOSINOPHILS % (AUTO) 1.6 % (0-6); HEMATOCRIT 35.9 % (37.9-51.0); HEMOGLOBIN 12.3 g/dL (13.5-17.0); LYMPHOCYTES % (AUTO) 16.1 % (13-45); MEAN CORPUSCULAR HEMOGLOBIN 33.3 pg (27.0-33.4); MEAN CORPUSCULAR HGB CONC 34.2 g/dL (32.0-36.0); MEAN CORPUSCULAR VOLUME 98 fl (80-97); RED BLOOD COUNT 3.68 10^6/uL (4.35-5.55); RED CELL DISTRIBUTION WIDTH 14.7 % (11.5-14.0); SEGMENTED NEUTROPHILS % (AUTO) 74.5 % (42-78)
[2017-01-26 12:29] LABS: PROTHROMBIN TIME 13.7 SEC (11.4-15.4)
[2017-01-26] MEDS ORDERED: NORMAL SALINE 500 ML IV ONE (12:33)
--- NOTE | 2017-01-26 12:37 | RADIOLOGY REPORT (SQ) ---
EXAM DESCRIPTION: CHEST SINGLE VIEW COMPLETED DATE/TIME: 01/26/2017 12:27 pm REASON FOR STUDY: CP COMPARISON: CT angio chest 11/17/2016 Chest films 09/16/2016, 05/27/2016, 12/16/2015, 10/29/2015 EXAM PARAMETERS: NUMBER OF VIEWS: One view. TECHNIQUE: Single frontal radiographic view of the chest acquired. RADIATION DOSE: NA LIMITATIONS: Obese patient, portable chest FINDINGS: LUNGS AND PLEURA: No opacities, masses or pneumothorax. No pleural effusion. MEDIASTINUM AND HILAR STRUCTURES: No masses. Contour normal. Stable benign epicardial fat pad along the left heart border. HEART AND VASCULAR STRUCTURES: No cardiomegaly. Old sternotomy for CABG. BONES: No acute findings. HARDWARE: None in the chest. OTHER: No other significant finding. IMPRESSION: Sternotomy for CABG. No acute findings TECHNICAL DOCUMENTATION: JOB ID: [id number]
[2017-01-26 12:44] LABS: ALANINE AMINOTRANSFERASE 23 U/L (21-72); ALBUMIN 4.3 g/dL (3.5-5.0); ALKALINE PHOSPHATASE 76 U/L (38-126); ANION GAP 12 (5-19); ASPARTATE AMINO TRANSFERASE 22 U/L (17-59); BILIRUBIN,DIRECT 0.3 mg/dL (0.0-0.4); BILIRUBIN,TOTAL 0.9 mg/dL (0.2-1.3); BLOOD UREA NITROGEN 11 mg/dL (7-20); CALCIUM 8.7 mg/dL (8.4-10.2); CARBON DIOXIDE 23 mmol/L (22-30); CHLORIDE 103 mmol/L (98-107); CREATINE KINASE 39 U/L (55-170); CREATININE RESULT 0.85 mg/dL (0.52-1.25); GLUCOSE 123 mg/dL (75-110); POTASSIUM 4.6 mmol/L (3.6-5.0); SODIUM 138.1 mmol/L (137-145); TOTAL PROTEIN 7.6 g/dL (6.3-8.2)
[2017-01-26 12:52] LABS: CREATINE KINASE MB 0.59 ng/mL (<4.55)
[2017-01-26 12:57] LABS: TROPONIN I < 0.012 ng/mL
--- NOTE | 2017-01-26 13:25 | EKG REPORT ---
SEVERITY:- NORMAL ECG - SINUS RHYTHM : Confirmed by: Reed Pedroza 26-Jan-2017 13:24:55
[2017-01-26] MEDS ORDERED: NITROGLYCERIN 2% OINTMENT 1 GM PACKET TP ONE (13:28)
[2017-01-26] MEDS ORDERED: ACETAMINOPHEN 325 MG TABLET PO PRN (15:20)
[2017-01-26] MEDS ORDERED: IPRATROPIUM/ALBUTEROL 0.5-2.5 MG/3 ML AMPUL NEB PRN (15:20)
[2017-01-26] MEDS ORDERED: INSULIN LISPRO 100 UNIT/ML 3 ML VIAL SUBCUT PRN (15:28)
[2017-01-26] MEDS ORDERED: DEXTROSE 50%-WATER 25 GM/50 ML DISP.SYRIN IV PRN ×2 (15:28)
[2017-01-26] MEDS ORDERED: GLUCAGON,HUMAN RECOMB 1 MG INJ IM PRN (15:28)
[2017-01-26] MEDS ORDERED: DEXTROSE 40% GEL 15 GM TUBE PO PRN ×2 (15:28)
[2017-01-26] MEDS: LANSOPRAZOLE 15 MG TAB.RAP.DR PO SCH (16:02)
--- NOTE | 2017-01-26 16:36 | PDOC H&P ---
History of Present Illness Admission Date/PCP: CHICHO GREEN MD Patient complains of: Chest pain and dizziness History of Present Illness: TANIA LIRIANO is a 51 year old male This is a 51-year-old male with a significant history of the coronary artery disease status post bypass graft and currently see Dr. otoole in [place] [facility] and patients to have a cardiac cath was done in June which is all stableAnd patient have a history of the nonsustained VT and a history of EP study was done the last month and was all stable came to er by ems due to feel dizziness and near passout and not feeling well while awitng [place] bus stop. pt bs was 111 and pt was stress out at that time due to bus issue in er pt curr doing well denied any dizziness no blurry vision no palpitation Patient have on going cardiac issues with the chest pain and the shortness of the breath with patient have a recently a CT angiogram was done was negative for pulmonary embolism patient also see pulmonary for the chronic COPD and a sleep apnea issues Patient recently see a GI and have a ultrasound of the abdomen done with so the gallstone but no cholecystitis Patients came to the emergency department because of the complaint of chest pain on and off and above episode actually have patient have an appointment to see me in office today and came to the ER initial workup in the emergency department was all negative for any acute coronary syndromePatients at this point ER physicians called [place] [facility] and suggest to admit the patient here rule out acute coronary syndrome and do the stress testWe admit the patient consult the local cardiology Dr. hoyt for further evaluate the patient pt denied any chest pain now Past Medical History Cardiac Medical History: Reports: Coronary Artery Disease, Myocardial Infarction - 2012,2013, Hypertension Denies: Congestive Heart Failure, Hyperlipidema Pulmonary Medical History: Reports: Asthma, Chronic Obstructive Pulmonary Disease (COPD) Neurological Medical History: Reports: Seizures - 3-4 MTHS AGO ( NEURO WORK UP) states from hypoxia when sleeping Endocrine Medical History: Reports: Diabetes Mellitus Type 2 GI Medical History: Reports: Gastroesophageal Reflux Disease Denies: Hepatitis, Hiatal Hernia GI History Note: gall stone Musculoskeltal Medical History: Reports: Arthritis Psychiatric Medical History: Reports: Depression Hematology: Denies: Anemia, Sickle Cell Disease Past Surgical History Past Surgical History: Reports: Cardiac Catheterization, Coronary Artery Bypass Graft - Three-vessel bypass on 09/17/2013, Coronary Stent - Patient received stents before and after his bypass surgery, Orthopedic Surgery - L KNEE arthroscopic surgery 2 Denies: Pacemaker Social History Smoking Status: Unknown if Ever Smoked Family History Family History: Reviewed & Not Pertinent Parental Family History Reviewed: Yes Children Family History Reviewed: Yes Sibling(s) Family History Reviewed.: Yes Medication/Allergy Allergies/Adverse Reactions: naproxen Allergy (Mild, Verified 12/22/16 11:10) trouble breathing OSCAR Inhibitors Allergy (Verified 12/22/16 11:10) cough gabapentin Allergy (Verified 12/22/16 11:10) Hallucinations Review of Systems Constitutional: ABSENT: chills, fever(s), headache(s), weight gain, weight loss Eyes: ABSENT: visual disturbances Ears: ABSENT: hearing changes Cardiovascular: PRESENT: chest pain, dyspnea on exertion. ABSENT: edema, orthropnea, palpitations Respiratory: ABSENT: cough, hemoptysis Gastrointestinal: ABSENT: abdominal pain, constipation, diarrhea, hematemesis, hematochezia, nausea, vomiting Genitourinary: ABSENT: dysuria, hematuria Musculoskeletal: ABSENT: joint swelling Integumentary: ABSENT: rash, wounds Neurological: ABSENT: abnormal gait, abnormal speech, confusion, dizziness, focal weakness, syncope Psychiatric: ABSENT: anxiety, depression, homidical ideation, suicidal ideation Endocrine: ABSENT: cold intolerance, heat intolerance, menstrual abnormalities, polydipsia, polyuria Hematologic/Lymphatic: ABSENT: easy bleeding, easy bruising, lymphadenopathy Physical Exam Vital Signs: Temp Pulse Resp BP Pulse Ox 97.6 F 67 15 107/70 99 01/26/17 12:31 01/26/17 12:31 01/26/17 13:01 01/26/17 13:01 01/26/17 13:01 Intake & Output 01/25/17 01/26/17 01/27/17 06:59 06:59 06:59 Weight 145 kg General appearance: PRESENT: no acute distress, well-developed, well-nourished Head exam: PRESENT: atraumatic, normocephalic Eye exam: PRESENT: conjunctiva pink, EOMI, PERRLA. ABSENT: scleral icterus Ear exam: PRESENT: normal external ear exam Mouth exam: PRESENT: moist, tongue midline Neck exam: PRESENT: full ROM. ABSENT: carotid bruit, JVD, lymphadenopathy, thyromegaly Respiratory exam: PRESENT: clear to auscultation milind Cardiovascular exam: PRESENT: RRR, +S1, +S2. ABSENT: diastolic murmur, rubs, systolic murmur Pulses: PRESENT: normal dorsalis pedis pul, +2 pedal pulses bilateral Vascular exam: PRESENT: normal capillary refill GI/Abdominal exam: PRESENT: normal bowel sounds, soft. ABSENT: distended, guarding, mass, organolmegaly, rebound, tenderness Rectal exam: PRESENT: deferred Extremities exam: ABSENT: pedal edema Neurological exam: PRESENT: alert, awake, oriented to person, oriented to place , oriented to time, oriented to situation, CN II-XII grossly intact. ABSENT: motor sensory deficit Psychiatric exam: PRESENT: appropriate affect, normal mood. ABSENT: homicidal ideation, suicidal ideation Skin exam: PRESENT: dry, intact, warm. ABSENT: cyanosis, rash Results Laboratory Results: 01/26/17 12:10 01/26/17 12:10 01/26/17 01/26/17 12:10 12:10 WBC 6.0 RBC 3.68 L Hgb 12.3 L Hct 35.9 L MCV 98 H MCH 33.3 MCHC 34.2 RDW 14.7 H Plt Count 185 Seg Neutrophils % 74.5 Lymphocytes % 16.1 Monocytes % 7.0 Eosinophils % 1.6 Basophils % 0.8 Absolute Neutrophils 4.5 Absolute Lymphocytes 1.0 Absolute Monocytes 0.4 Absolute Eosinophils 0.1 Absolute Basophils 0.0 Sodium 138.1 Potassium 4.6 Chloride 103 Carbon Dioxide 23 Anion Gap 12 BUN 11 Creatinine 0.85 Est GFR ( Amer) > 60 Est GFR (Non-Af Amer) > 60 Glucose 123 H Calcium 8.7 Total Bilirubin 0.9 AST 22 ALT 23 Alkaline Phosphatase 76 Total Protein 7.6 Albumin 4.3 01/26/17 01/26/17 12:10 12:10 Creatine Kinase 39 L CK-MB (CK-2) 0.59 Troponin I < 0.012 Impressions: Chest X-Ray 01/26/17 12:04 IMPRESSION: Sternotomy for CABG. No acute findings Assessment & Plan - Diagnosis (1) Chest pain Qualifiers: Chest pain type: unspecified Qualified Code(s): R07.9 - Chest pain, unspecified Is this a current diagnosis for this admission?: YesPlan: Admit the patient in the IMCU rule out the acute coronary syndrome consult the cardiology and a stress test as per discussed with the [place] [facility] (2) CAD (coronary artery disease) Qualifiers: Coronary Disease-Associated Artery/Lesion type: bypass graft Is this a current diagnosis for this admission?: YesPlan: Admit the patient's in IMCU rule out acute coronary syndromes consult the cardiology (3) Chronic obstructive pulmonary disease Qualifiers: COPD type: unspecified COPD Qualified Code(s): J44.9 - Chronic obstructive pulmonary disease, unspecified Is this a current diagnosis for this admission?: YesPlan: Continues to nebulizer treatments (4) Nonsustained ventricular tachycardia Is this a current diagnosis for this admission?: YesPlan: Recent EP study was done was all stable (5) Hypertension Qualifiers: Hypertension type: essential hypertension Qualified Code(s): I10 - Essential (primary) hypertension Is this a current diagnosis for this admission?: YesPlan: Continues current medication (6) Hyperlipidemia Qualifiers: Hyperlipidemia type: unspecified Qualified Code(s): E78.5 - Hyperlipidemia, unspecified Is this a current diagnosis for this admission?: Yes (7) Type 2 diabetes mellitus Qualifiers: Diabetes mellitus complication status: with unspecified complications Is this a current diagnosis for this admission?: YesPlan: Continues a sliding scale (8) Morbid obesity Is this a current diagnosis for this admission?: Yes (9) Depression Qualifiers: Depression Type: major depressive disorder Major depression episode severity: moderate Is this a current diagnosis for this admission?: YesPlan: Continues current medication (10) Dizziness Is this a current diagnosis for this admission?: YesPlan: will order ct head - Time Time Spent: 30 to 50 Minutes Medications reviewed and adjusted accordingly: Yes Anticipated discharge: Home Within: Other - Inpatient Certification Medical Necessity: Need Close Monitoring Due to Risk of Patient Decompensation 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 Salomon and suggest a Lexiscan Cardiolite stress test and continues to monitor and rule out the acute coronary syndrome
--- NOTE | 2017-01-26 16:57 | RADIOLOGY REPORT (SQ) ---
EXAM DESCRIPTION: CT HEAD WITHOUT COMPLETED DATE/TIME: 01/26/2017 4:46 pm REASON FOR STUDY: dizziness COMPARISON: None. TECHNIQUE: Axial images acquired through the brain without intravenous contrast. Images reviewed wi th bone, brain and subdural windows. Images stored on PACS. All CT scanners at this facility use dose modulation, iterative reconstruction, and/or weight based d osing when appropriate to reduce radiation dose to as low as reasonably achievable (ALARA). [facility]: Dose Right [facility]: CareDose [facility]: Dose Right [facility]: Teradose 4D [facility]: [employer] RADIATION DOSE: Up-to-date CT equipment and radiation dose reduction techniques were employed. CTDIv ol: 64.6 mGy. DLP: 1163 mGy-cm. mGy. LIMITATIONS: None. FINDINGS: VENTRICLES: Normal size and contour. CEREBRUM: No masses. No hemorrhage. No midline shift. Normal lopez/white matter differentiation. N o evidence for acute infarction. CEREBELLUM: No masses. No hemorrhage. No alteration of density. No evidence for acute infarction. EXTRAAXIAL SPACES: No fluid collections. No masses. ORBITS AND GLOBE: No intra- or extraconal masses. Normal contour of globe without masses. CALVARIUM: No fracture. PARANASAL SINUSES: No fluid or mucosal thickening. SOFT TISSUES: No mass or hematoma. OTHER: There appears to be some inferior displacement of the orbital floor on the right which may be related to previous trauma. Clinical correlation is recommended. IMPRESSION: No significant intracranial abnormalities were identified. Other findings as noted stefan atkins. TECHNICAL DOCUMENTATION: JOB ID: [id number] Quality ID # [id number]: Final reports with documentation of one or more dose reduction techniques (e.g., Au tomated exposure control, adjustment of the mA and/or kV according to patient size, use of iterative reconstruction technique) 2010 [employer]- All Rights Reserved
[2017-01-26] MEDS ORDERED: ALBUTEROL SULFATE HFA (90 MCG/PUFF) 8 GM MDI (1 MDI/ER DISP) IH PRN (20:01)
[2017-01-26] MEDS ORDERED: (PENDING PHARMACY ID) (Roflumilast [Daliresp 500 Mcg Tablet] 500 MCG) PO PRN (20:01)
[2017-01-26] MEDS ORDERED: ALBUTEROL SULFATE HFA (90 MCG/PUFF) 200 PUFF/8.5 GM MDI IH PRN (20:20)
[2017-01-26] MEDS: METOPROLOL TARTRATE 100 MG TABLET PO SCH (21:13)
[2017-01-26] MEDS ORDERED: (PENDING PHARMACY ID) (Ranolazine [Ranexa] 1,000 MG) PO SCH (22:00)
[2017-01-26] MEDS ORDERED: (PENDING PHARMACY ID) (Ranitidine Hcl [Zantac] 300 MG) PO SCH (22:00)
[2017-01-26] MEDS: BUDESONIDE/FORMOTEROL 160-4.5 MCG 60 PUFF/6 GM MDI IH SCH (22:32)
[2017-01-26] MEDS: TRAMADOL HCL 50 MG TABLET PO SCH (22:33)
[2017-01-26] MEDS: FAMOTIDINE 20 MG TABLET PO SCH (22:33)
[2017-01-26] MEDS: RANOLAZINE 500 MG TAB.SR.12H PO SCH (22:33)
[2017-01-26] MEDS: ATORVASTATIN CALCIUM 40 MG TABLET PO SCH (22:33)
[2017-01-26 22:34] LABS: CREATINE KINASE MB 0.54 ng/mL (<4.55)
[2017-01-26 22:37] LABS: TROPONIN I < 0.012 ng/mL
[2017-01-27 04:53] LABS: ABSOLUTE EOSINOPHILS # (AUTO) 0.1 10^3/uL (0.0-0.6); ABSOLUTE LYMPHOCYTES (AUTO) 1.1 10^3/uL (0.5-4.7); ABSOLUTE MONOCYTES (AUTO) 0.5 10^3/uL (0.1-1.4); ABSOLUTE NEUT (AUTO) 3.5 10^3/uL (1.7-8.2); BASOPHILS % (AUTO) 0.8 % (0-2); EOSINOPHILS % (AUTO) 2.1 % (0-6); HEMATOCRIT 33.4 % (37.9-51.0); HEMOGLOBIN 11.7 g/dL (13.5-17.0); HGB HCT DIFFERENCE 1.7; LYMPHOCYTES % (AUTO) 20.2 % (13-45); MEAN CORPUSCULAR HEMOGLOBIN 33.6 pg (27.0-33.4); MEAN CORPUSCULAR VOLUME 96 fl (80-97); MONOCYTES % (AUTO) 9.6 % (3-13); RED BLOOD COUNT 3.47 10^6/uL (4.35-5.55); RED CELL DISTRIBUTION WIDTH 14.5 % (11.5-14.0); SEGMENTED NEUTROPHILS % (AUTO) 67.3 % (42-78); WHITE BLOOD COUNT 5.2 10^3/uL (4.0-10.5)
[2017-01-27 05:05] LABS: ANION GAP 10 (5-19); BLOOD UREA NITROGEN 14 mg/dL (7-20); CALCIUM 8.9 mg/dL (8.4-10.2); CARBON DIOXIDE 28 mmol/L (22-30); CHLORIDE 102 mmol/L (98-107); CREATINE KINASE 26 U/L (55-170); CREATININE RESULT 0.85 mg/dL (0.52-1.25); GLUCOSE 116 mg/dL (75-110); POTASSIUM 4.6 mmol/L (3.6-5.0); SODIUM 139.9 mmol/L (137-145)
[2017-01-27 05:15] LABS: CREATINE KINASE MB 0.49 ng/mL (<4.55)
[2017-01-27 05:16] LABS: TROPONIN I < 0.012 ng/mL
[2017-01-27] MEDS: LANSOPRAZOLE 15 MG TAB.RAP.DR PO SCH ×2 (05:18→16:47)
[2017-01-27] MEDS ORDERED: METFORMIN HCL 500 MG TABLET PO SCH (08:00)
[2017-01-27] MEDS ORDERED: (PENDING PHARMACY ID) (Sitagliptin Phos/Metformin Hcl [Janumet 50-500 Mg Tablet] 1 TAB) PO SCH (08:00)
[2017-01-27] MEDS: METFORMIN HCL 500 MG TABLET PO SCH ×2 (08:35→16:47)
[2017-01-27] MEDS: HYDROCHLOROTHIAZIDE 12.5 MG CAPSULE PO SCH (08:35)
[2017-01-27] MEDS: SITAGLIPTIN PHOSPHATE 50 MG TABLET PO SCH ×2 (08:35→16:47)
[2017-01-27] MEDS: CETIRIZINE 5 MG TABLET PO SCH (11:04)
[2017-01-27] MEDS: RANOLAZINE 500 MG TAB.SR.12H PO SCH ×2 (11:06→21:40)
[2017-01-27] MEDS: TRAMADOL HCL 50 MG TABLET PO SCH ×2 (11:06→21:40)
[2017-01-27] MEDS: METOPROLOL TARTRATE 100 MG TABLET PO SCH ×2 (11:07→21:40)
[2017-01-27] MEDS: PREGABALIN 50 MG CAPSULE PO SCH (11:07)
[2017-01-27] MEDS: LOSARTAN POTASSIUM 50 MG TABLET PO SCH (11:08)
[2017-01-27] MEDS: POTASSIUM CHLORIDE 10 MEQ TABLET.SA PO SCH (11:08)
[2017-01-27] MEDS: BUDESONIDE/FORMOTEROL 160-4.5 MCG 60 PUFF/6 GM MDI IH SCH ×2 (11:09→21:40)
[2017-01-27] MEDS: CLOPIDOGREL BISULFATE 75 MG TABLET PO SCH (11:09)
[2017-01-27] MEDS: TIOTROPIUM BROMIDE DPI 5 CAP/KIT (18 MCG/CAP) IH SCH (11:10)
[2017-01-27] MEDS: ENOXAPARIN SODIUM INJ 40 MG/0.4 ML DISP.SYRIN SUBCUT SCH (11:10)
--- NOTE | 2017-01-27 14:34 | PDOC PROGRESS REPORT ---
Subjective Progress Note for:: 01/27/17 Subjective:: Patient is currently doing well. Patient's denied any chest pain denied any shortness of the breath.Patient's underwent for the Cardiolite stress test was still result is pendingPatient's all cardiac enzyme is negative patient head CT was also negative and no other abnormalities in the telemetry Physical Exam Vital Signs: Temp Pulse Resp BP Pulse Ox 98.0 F 67 21 H 147/95 H 99 01/27/17 11:04 01/27/17 11:04 01/27/17 11:04 01/27/17 11:04 01/27/17 11:04 Intake & Output 01/26/17 01/27/17 01/28/17 06:59 06:59 06:59 Intake Total 355 240 Balance 355 240 Weight 145.6 kg General appearance: PRESENT: no acute distress, well-developed, well-nourished Head exam: PRESENT: atraumatic, normocephalic Eye exam: PRESENT: conjunctiva pink, EOMI, PERRLA. ABSENT: scleral icterus Ear exam: PRESENT: normal external ear exam Mouth exam: PRESENT: moist, tongue midline Neck exam: PRESENT: full ROM. ABSENT: carotid bruit, JVD, lymphadenopathy, thyromegaly Respiratory exam: PRESENT: clear to auscultation milind Cardiovascular exam: PRESENT: RRR. ABSENT: diastolic murmur, rubs, systolic murmur Pulses: PRESENT: normal dorsalis pedis pul, +2 pedal pulses bilateral Vascular exam: PRESENT: normal capillary refill GI/Abdominal exam: PRESENT: normal bowel sounds, soft. ABSENT: distended, guarding, mass, organolmegaly, rebound, tenderness Rectal exam: PRESENT: deferred Neurological exam: PRESENT: alert, awake, oriented to person, oriented to place , oriented to time, oriented to situation, CN II-XII grossly intact. ABSENT: motor sensory deficit Psychiatric exam: PRESENT: appropriate affect, normal mood. ABSENT: homicidal ideation, suicidal ideation Skin exam: PRESENT: dry, intact, warm. ABSENT: cyanosis, rash Results Laboratory Results: 01/27/17 04:27 01/27/17 04:27 01/27/17 01/27/17 04:27 04:27 WBC 5.2 RBC 3.47 L Hgb 11.7 L Hct 33.4 L MCV 96 MCH 33.6 H MCHC 35.0 RDW 14.5 H Plt Count 162 Seg Neutrophils % 67.3 Lymphocytes % 20.2 Monocytes % 9.6 Eosinophils % 2.1 Basophils % 0.8 Absolute Neutrophils 3.5 Absolute Lymphocytes 1.1 Absolute Monocytes 0.5 Absolute Eosinophils 0.1 Absolute Basophils 0.0 Sodium 139.9 Potassium 4.6 Chloride 102 Carbon Dioxide 28 Anion Gap 10 BUN 14 Creatinine 0.85 Est GFR ( Amer) > 60 Est GFR (Non-Af Amer) > 60 Glucose 116 H Calcium 8.9 Magnesium 2.0 01/26/17 01/26/17 01/26/17 16:05 16:05 16:05 Creatine Kinase 40 L CK-MB (CK-2) 0.50 Troponin I < 0.012 Cancelled NT-Pro-B Natriuret Pep 01/26/17 01/26/17 01/27/17 22:00 22:00 04:27 Creatine Kinase 34 L CK-MB (CK-2) 0.54 0.49 Troponin I < 0.012 < 0.012 NT-Pro-B Natriuret Pep 168 01/27/17 04:27 Creatine Kinase 26 L CK-MB (CK-2) Troponin I NT-Pro-B Natriuret Pep Impressions: Head CT 01/26/17 00:00 IMPRESSION: No significant intracranial abnormalities were identified. Other findings as noted above. Chest X-Ray 01/26/17 12:04 IMPRESSION: Sternotomy for CABG. No acute findings Assessment & Plan - Diagnosis (1) Chest pain Qualifiers: Chest pain type: unspecified Qualified Code(s): R07.9 - Chest pain, unspecified Is this a current diagnosis for this admission?: YesPlan: Will wait for the Dr. Salomon further evaluation and the Cardiolite stress test (2) CAD (coronary artery disease) Qualifiers: Coronary Disease-Associated Artery/Lesion type: unspecified vessel or lesion type [place] vs. transplanted heart: [place] heart Associated angina: angina presence unspecified Qualified Code(s): I25.10 - Atherosclerotic heart disease of [place] coronary artery without angina pectoris Is this a current diagnosis for this admission?: YesPlan: Admit the patient's in IMCU rule out acute coronary syndromes consult the cardiology (3) Chronic obstructive pulmonary disease Qualifiers: COPD type: unspecified COPD Qualified Code(s): J44.9 - Chronic obstructive pulmonary disease, unspecified Is this a current diagnosis for this admission?: YesPlan: Continues to nebulizer treatments (4) Nonsustained ventricular tachycardia Is this a current diagnosis for this admission?: YesPlan: Recent EP study was done was all stable (5) Hypertension Qualifiers: Hypertension type: essential hypertension Qualified Code(s): I10 - Essential (primary) hypertension Is this a current diagnosis for this admission?: YesPlan: Continues current medication (6) Hyperlipidemia Qualifiers: Hyperlipidemia type: unspecified Qualified Code(s): E78.5 - Hyperlipidemia, unspecified Is this a current diagnosis for this admission?: Yes (7) Type 2 diabetes mellitus Qualifiers: Diabetes mellitus complication status: with unspecified complications Is this a current diagnosis for this admission?: YesPlan: Continues a sliding scale (8) Morbid obesity Is this a current diagnosis for this admission?: Yes (9) Depression Qualifiers: Depression Type: major depressive disorder Major depression episode severity: moderate Is this a current diagnosis for this admission?: Yes (10) Dizziness Is this a current diagnosis for this admission?: YesPlan: With ongoing chronic problems with a recent workup is all negative patient EP study was also currently stablePatient is currently denied any dizziness as per discussed with Dr. Raul clay the CT of the C-spine - Time Time Spent with patient: 15-24 minutes Medications reviewed and adjusted accordingly: Yes Anticipated discharge: Home Within: Other - Inpatient Certification Medical Necessity: Need Close Monitoring Due to Risk of Patient Decompensation Post Hospital Care: D/C Clinic Office Coordinator Documentation - Plan Summary Plan Summary: Discussed with the patient about the all the test reports and discussed with the coordinate care with the Dr. Salomon
--- NOTE | 2017-01-27 15:31 | RADIOLOGY REPORT (SQ) ---
EXAM DESCRIPTION: CT CERVICAL SPINE WITHOUT COMPLETED DATE/TIME: 01/27/2017 3:13 pm REASON FOR STUDY: neck pain/dizziness COMPARISON: None. TECHNIQUE: Axial images acquired through the cervical spine without intravenous contrast. Images re viewed with lung, soft tissue and bone windows. Reconstructed coronal and sagittal MPR images review ed. Images stored on PACS. All CT scanners at this facility use dose modulation, iterative reconstruction, and/or weight based d osing when appropriate to reduce radiation dose to as low as reasonably achievable (ALARA). [facility]: Dose Right [facility]: CareDose [facility]: Dose Right [facility]: Teradose 4D [facility]: Smart [employer] RADIATION DOSE: Up-to-date CT equipment and radiation dose reduction techniques were employed. CTDIv ol: 26.4 mGy. DLP: 677 mGy-cm. mGy. LIMITATIONS: B hardening artifact over the lower cervical spine related to the patient's large body habitus. Fine soft tissue and bony detail at C6-C7 and T1 is not well seen FINDINGS: ALIGNMENT: Anatomic. MINERALIZATION: Normal. VERTEBRAL BODIES: No fractures or dislocation. DISCS: Diffuse disc space loss of height throughout the cervical spine. There is minimal posterior d isc bulging at C2-3 without central or foraminal stenosis. At C3-4, mild diffuse posterior disc bulge and bony spurring right greater than left causes borderlin e rightward central canal narrowing, and moderate right foraminal narrowing. Minimal left foraminal stenosis. At C4-5, broad diffuse posterior disc bulging effaces the ventral CSF and abuts the ventral cord with mild ventral cord flattening. Mild central canal stenosis. Moderate bilateral foraminal narrowing. At C5-6, broad diffuse posterior disc bulge and bony spurring effaces the ventral thecal sac, abuts t he ventral cord and causes moderate central canal stenosis. High-grade bilateral foraminal narrowing . At C6-7, broad diffuse posterior disc bulge and bony spurring causes high-grade central canal narrowi ng. High-grade bilateral foraminal narrowing right greater than left. At C7-T1, fine soft tissue detail is lost. There is mild bilateral foraminal narrowing. No gross ce ntral stenosis. FACETS, LATERAL MASSES, POSTERIOR ELEMENTS: No fractures. No dislocation. No acute findings. HARDWARE: None in the spine. VISUALIZED RIBS: No fractures. LUNG APICES AND SOFT TISSUES: No significant or acute findings. OTHER: No other significant finding. IMPRESSION: Multilevel central and foraminal stenosis. TECHNICAL DOCUMENTATION: JOB ID: [id number] Quality ID # [id number]: Final reports with documentation of one or more dose reduction techniques (e.g., Au tomated exposure control, adjustment of the mA and/or kV according to patient size, use of iterative reconstruction technique) 2010 [employer]- All Rights Reserved
[2017-01-27] MEDS ORDERED: REGADENOSON INJ 0.4 MG/5 ML DISP.SYRIN IV ONE (16:18)
[2017-01-27] MEDS: FAMOTIDINE 20 MG TABLET PO SCH (21:40)
[2017-01-27] MEDS: ATORVASTATIN CALCIUM 40 MG TABLET PO SCH (21:40)
--- NOTE | 2017-01-28 00:17 | CONSULTATION REPORT E ---
Consultation Report NAME: TANIA LIRIANO : 1965 AGE: 51Y DATE: 01/27/2017 336 A TO: BRICE BEJARANO M.D. FROM: CHICHO GREEN M.D. Requesting Physician The patient was seen at 8 a.m. Forty minutes spent on this patient with more than 50% of the time spent on direct patient care. REASON FOR CONSULTATION: Chest pain and dizziness and near syncope and shortness of breath. HISTORY OF PRESENT ILLNESS: The patient is a 51-year-old male with known history of coronary artery disease, history of old IL, history of stents in the LAD and history of coronary artery bypass graft surgery who states that yesterday while having problems with bus ride, started having significant chest pressure sensation like and the whole upper chest felt like it was in a tight wave and also had shortness of breath with that and had prior to that a near syncopal episode but no real syncope. This lasted for about a half an hour and hence he decided to come to the emergency room. On consultation with his manufacturer's representative in [place], Dr. Kirby, the patient was recommended for serial EKG and enzymes and if IL was ruled out, to have the patient have a Cardiolite stress test. This has been planned and the patient will have a stress portion of the Lexiscan Cardiolite today since his enzymes have been negative and the patient has been chest pain free since admission. He denies any PND, orthopnea or leg edema. He denies any palpitations or definite syncope. PAST MEDICAL HISTORY: The patient states that in 2012 he had an IL and subsequently had stents placed and he felt well. Prior to that he had chest pressure and dyspnea on exertion and fatigue. He felt fine for about a year and subsequently he started having the same symptoms and cardiac catheterization led to the diagnosis of occlusion of the LAD stent and also there was a lesion in the circumflex; hence, the patient had a saphenous vein graft to the obtuse marginal 1 branch and SUAREZ to the LAD in 2013. Since then the patient has been having episodes of chest pain and multiple workups have been negative. In June 2016, the patient had a cardiac catheterization which showed the left main was patent, the LAD was occluded proximally with stents in the proximal LAD. He also had an occlusion of the proximal circumflex after a small ramus. The right coronary artery did not have any major disease. His SUAREZ to the LAD was patent and also the saphenous vein graft to the obtuse marginal 1 branch. His left ventriculogram showed an LV ejection fraction of 55% to 60%. Sometime in 2017 the patient also had a stress test which showed no reversible ischemia. There was anteroseptal and anteroapical moderate non-transmural myocardial infarction. The patient also due to palpitations had an event monitor which showed that the patient had nonsustained ventricular tachycardia. The patient underwent an EP study and was found to be noninducible for ventricular tachycardia. The patient also has a history of hypertension. He also has a history of diabetes mellitus type 2 non-insulin dependent with diabetic neuropathy of his lower extremities. He also has a history of sleep apnea but it is not clear whether the patient uses BiPAP, but he states he uses oxygen at night. He also has a history of asthma and COPD. He denies any chronic kidney disease, and there is no history of TIA or CVA. There is no history of collagen vascular disease and there is no history of anxiety or depression. PAST SURGICAL HISTORY: Positive for history of cardiac catheterization times 2 and history of stent placement and history of coronary artery bypass graft surgery. FAMILY HISTORY: Positive for coronary artery disease in his parents and siblings. SOCIAL HISTORY: The patient does not smoke. There is no history of EtOH abuse. ALLERGIES: 1. NAPROXEN. 2. OSCAR INHIBITORS. 3. GABAPENTIN. MEDICATIONS: 1. Zantac 300 mg p.o. at bedtime. 2. Albuterol sulfate ProAir HFA 2 puff inhalation q.4 h. p.r.n. 3. Amoxicillin 500 mg p.o. q.8 h. 4. Symbicort HFA 2 puff inhalation q.12 h. 5. Plavix 75 mg p.o. daily. 6. Hydrochlorothiazide 12.5 mg p.o. every morning. 7. Xyzal 5 mg p.o. daily. 8. Losartan 50 mg p.o. daily. 9. Metformin 500 mg tablet p.o. b.i.d. ACPS. 10. Lopressor 100 mg p.o. q.12 h. 11. Potassium 10 mEq p.o. daily. 12. Lyrica 50 mg p.o. daily. 13. Ranexa extended release 1000 mg p.o. q.12 h. 14. Daliresp 500 mcg tablet p.o. as directed p.r.n. 15. Janumet 50/500 1 tablet p.o. b.i.d. ACPS. 16. Spiriva HandiHaler 1 inhalation daily. 17. Tramadol 50 mg p.o. q.12 h. ADVANCED DIRECTIVES: The patient is a full code. He states his daughter who lives in [place] is his surrogate healthcare decision maker. REVIEW OF SYSTEMS: CONSTITUTIONAL: Denies any fever, chills or rigors. Complains of generalized fatigue and weakness. HEENT: Head: Denies any head injury, history of dizziness along with chest pressure and shortness of breath. Eyes: No history of amblyopia or diplopia. No history of amaurosis fugax. No history of diabetic retinopathy or blindness. Ears: No history of hearing loss, no history of tinnitus, no history of recurrent ear infections. Nose: There is no history of nosebleeds. Although no definite history of hay fever, has some sort of nasal allergy for which he takes Xyzal. There is no nasal polyposis. Mouth: No history of altered taste sensation, no ulcers in the mouth, no bleeding from the gums. Throat: Denies odynophagia or dysphagia, no history of recurrent sore throats. SKIN: There is no pruritus. There is no yellowish discoloration of the skin. There is no psoriasis. No history of skin cancer. NECK: No history of painful or painless swelling in the neck. No goiter. LUNGS: History of asthma and COPD. History of desaturation/sleep apnea. He is not on BiPAP but he is on nocturnal oxygen. No history of pulmonary embolism. He had a pulmonary CT angiogram which was negative for PE in the recent past months. There is no recent cough, fever, or symptoms suggestive of pneumonia, no wheezing. No history of pleuritic chest pain, no history of hemoptysis. CARDIAC: History of IL and history of coronary artery disease. History of chest pain since his bypass which has been chronic and so far negative results for diagnosis or cause of chest pain in spite of multiple workups. He has a past history of congestive heart failure but none recently. History of nonsustained ventricular tachycardia on his monitor with negative inducible ventricular tachycardia by EP study. No history of leg edema, no history of PND or orthopnea. History of stents. History of near syncope yesterday along with these chest symptoms but no syncope. GASTROINTESTINAL: The patient does have some history of GERD, no history of GI bleed. No history of fatty food intolerance. No history of jaundice. The patient had an abdominal CT angiogram which showed gallstones without any evidence of cholecystitis. No history of altered bowel movements. No abdominal pain. MUSCULOSKELETAL: History of arthritis and also seems that he has some symptoms of neck pain off and on. There is no history of collagen vascular disease. RENAL: No history of chronic kidney disease. No symptoms of UTI, hematuria, polyuria or dysuria. ENDOCRINE: History of diabetes mellitus type-2, non-insulin dependent with diabetic neuropathy. There is no history of thyroid disease. No history of polydipsia or polyuria. No history of heat or cold intolerance. CENTRAL NERVOUS SYSTEM: No history of TIA or CVA. No history of seizures. No history of headaches or migraines. PSYCHIATRIC: No history of anxiety or depression. No suicidal ideation and no homicidal ideation. VASCULAR: No history of calf or buttock claudication, but the patient does not ambulate much. METABOLIC: The patient has a history of hyperlipidemia and morbid obesity. HEMATOLOGICAL: No history of bleeding diathesis. No history of clotting disorders. No history of anemia or lymphoma. PHYSICAL EXAMINATION: GENERAL: Patient is morbidly obese, at present with no chest pain. VITAL SIGNS: He is afebrile with a temperature of 97.6 degrees Fahrenheit, pulse is 65 beats per minute, blood pressure is 138/86, respirations are 20 per minute, 02 sats are 100% on 0.5 L nasal cannula. HEENT: Head is atraumatic, normocephalic. Eyes: Pupils are equal, round, regular, reactive to light and accommodation. Extraocular movements are normal. There is no conjunctival pallor. There is no scleral icterus. Ears: Tympanic membranes are intact. External auditory canals are clear. Nose: There is no deviated nasal septum. There is no inflammation of the nasal mucous membranes. Mouth: Mucous membranes of the mouth are moist. Tongue is moist. There are no ulcers. There is no bleeding from the gums. Throat: There is no redness of the oropharynx. There are no exudates. SKIN: There are no skin rashes. There is no petechia or ecchymosis. There are no skin lesions. NECK: Supple. There is no JVD. Carotids are equal. There is no bruit. There is no lymphadenopathy. There is no goiter. Trachea is central. LUNGS: Show diminished air entry, prolonged expiration without any rales, rhonchi or wheezing. On percussion there is hyperresonance. HEART: S1 and S2 are heard. There is no S3 gallop. There is no S4 gallop. There is a systolic murmur in the left sternal border and the apex. There is no rub. ABDOMEN: Soft, nontender, obese. There is no hepatosplenomegaly. Bowel sounds are well heard. There are no tender areas or masses. EXTREMITIES: Femorals are diminished. Femorals are without any bruits. Leg pulses are diminished. There is no pedal edema. There is no DVT or cellulitis. There is no calf tenderness. CENTRAL NERVOUS SYSTEM: The patient is conscious, awake, alert, oriented x3 with no focal deficits. PSYCHIATRIC: The patient's judgment and insight are intact. His affect is normal. DIAGNOSTIC TEST RESULTS: The patient's EKG is sinus rhythm, within normal limits. The patient's head CT shows no significant intracranial abnormalities identified. Other findings as noted above. Chest x-ray without any acute findings except for sternotomy for CABG. The patient underwent IV Lexiscan Cardiolite. The imaging is awaited. If there is a defect, then the patient will have rest images with Cardiolite tomorrow morning, that is on 01/28. The patient's white count is 5200, hemoglobin is 11.7, hematocrit is 33.4, and platelet count is 162,000. The patient's prothrombin time is 13.7, INR is 0.98. The patient's sodium is 139.9, potassium 4.6, chloride 102, CO2 28, BUN 14, creatinine 0.85, GFR is greater than 60, glucose is 116, calcium is 8.9, magnesium is 2.0. The patient's CPK-MB and his troponin I are negative. His NT-proBNP is 168. IMPRESSION: 1. Chronic chest pain, question etiology. Would recommend that if the Cardiolite stress test is negative, then the patient should have a cervical spine CT to see if the patient has any C-spine pathology that could cause the patient's symptoms. Also would recommend that if the stress test is negative for reversible ischemia, the patient to have a barium swallow and esophageal follow through to see if there is any esophageal dysmotility disorder. 2. CAD. History of IL, history of LAD stent in 2012 with recurrence of symptoms and underwent 2 bypasses in 2013, saphenous vein graft to the obtuse marginal and SUAREZ to the LAD. 3. Hypertension. 4. Diabetes mellitus type 2 with diabetic neuropathy. 5. COPD. 6. Asthma. 7. Obstructive sleep apnea with desaturation at night, on nocturnal O2. Does not wear CPAP. 8. Morbid obesity. 9. Hyperlipidemia. 10. History of nonsustained ventricular tachycardia on the monitor which is noninducible by EP study. Note that the patient did undergo IV Lexiscan Cardiolite stress test without any complications. Imaging is awaited. If the images show any perfusion defect, then would recommend that the patient have a resting Cardiolite imaging tomorrow morning. Continue his current medications including the beta-sonya, aspirin, Plavix, his diabetic medications, Lyrica and ranitidine, his Ranexa and his ARB. NOTE: Forty minutes spent on the patient with more than 50% of the time spent on direct patient care. Medications have been reviewed and the case discussed with the attending physician. Also discussed the procedure of stress test with the patient. Note, this is a case which requires highly complex medical decision making in view of the chronicity of the patient's chest pain. Would strongly recommend a cervical spine CT and later as an outpatient can have a barium swallow and esophageal follow through for any esophageal pathology. As mentioned earlier, 40 minutes spent on the patient with more than 50% of the time spent on direct patient care. Will follow with you. Thanking you. DICTATING PHYSICIAN: BRICE BEJARANO M.D. [id number]#: [id number] ID: [id number] JOB#: [id number] ACCT: [id number] cc:BRICE BEJARANO M.D. >
[2017-01-28] MEDS: LANSOPRAZOLE 15 MG TAB.RAP.DR PO SCH (05:15)
[2017-01-28 06:20] LABS: ABSOLUTE EOSINOPHILS # (AUTO) 0.1 10^3/uL (0.0-0.6); ABSOLUTE MONOCYTES (AUTO) 0.5 10^3/uL (0.1-1.4); ABSOLUTE NEUT (AUTO) 3.6 10^3/uL (1.7-8.2); BASOPHILS % (AUTO) 0.9 % (0-2); HEMATOCRIT 36.5 % (37.9-51.0); HEMOGLOBIN 12.9 g/dL (13.5-17.0); HGB HCT DIFFERENCE 2.2; LYMPHOCYTES % (AUTO) 18.9 % (13-45); MEAN CORPUSCULAR HEMOGLOBIN 33.7 pg (27.0-33.4); MEAN CORPUSCULAR HGB CONC 35.2 g/dL (32.0-36.0); MEAN CORPUSCULAR VOLUME 96 fl (80-97); MONOCYTES % (AUTO) 9.5 % (3-13); RED BLOOD COUNT 3.81 10^6/uL (4.35-5.55); RED CELL DISTRIBUTION WIDTH 14.7 % (11.5-14.0); SEGMENTED NEUTROPHILS % (AUTO) 68.7 % (42-78); WHITE BLOOD COUNT 5.2 10^3/uL (4.0-10.5)
[2017-01-28 06:39] LABS: ANION GAP 15 (5-19); BLOOD UREA NITROGEN 15 mg/dL (7-20); CALCIUM 9.4 mg/dL (8.4-10.2); CARBON DIOXIDE 25 mmol/L (22-30); CHLORIDE 99 mmol/L (98-107); CREATININE RESULT 0.95 mg/dL (0.52-1.25); GLUCOSE 94 mg/dL (75-110); POTASSIUM 4.5 mmol/L (3.6-5.0); SODIUM 139.4 mmol/L (137-145)
[2017-01-28] MEDS: ENOXAPARIN SODIUM INJ 40 MG/0.4 ML DISP.SYRIN SUBCUT SCH (09:20)
[2017-01-28] MEDS: CLOPIDOGREL BISULFATE 75 MG TABLET PO SCH (09:20)
[2017-01-28] MEDS: POTASSIUM CHLORIDE 10 MEQ TABLET.SA PO SCH (09:20)
[2017-01-28] MEDS: RANOLAZINE 500 MG TAB.SR.12H PO SCH (09:20)
[2017-01-28] MEDS: TRAMADOL HCL 50 MG TABLET PO SCH (09:21)
[2017-01-28] MEDS: SITAGLIPTIN PHOSPHATE 50 MG TABLET PO SCH (09:21)
[2017-01-28] MEDS: METFORMIN HCL 500 MG TABLET PO SCH (09:22)
[2017-01-28] MEDS: BUDESONIDE/FORMOTEROL 160-4.5 MCG 60 PUFF/6 GM MDI IH SCH (09:22)
[2017-01-28] MEDS: CETIRIZINE 5 MG TABLET PO SCH (09:22)
[2017-01-28] MEDS: PREGABALIN 50 MG CAPSULE PO SCH (09:22)
[2017-01-28] MEDS: TIOTROPIUM BROMIDE DPI 5 CAP/KIT (18 MCG/CAP) IH SCH (09:23)
[2017-01-28] MEDS: METOPROLOL TARTRATE 100 MG TABLET PO SCH (09:25)
[2017-01-28] MEDS: LOSARTAN POTASSIUM 50 MG TABLET PO SCH (09:25)
[2017-01-28] MEDS: HYDROCHLOROTHIAZIDE 12.5 MG CAPSULE PO SCH (09:25)
[2017-01-28] MEDS ORDERED: ISOSORBIDE MONONITRATE 30 MG TAB.ER.24H PO ONE (12:00)
--- NOTE | 2017-01-28 13:48 | PDOC DISCHARGE SUMMARY ---
General - Admit/Disc Date/PCP Admission Date/Primary Care Provider: 01/26/17 15:20 CHICHO OCHOA MD Discharge Date: 01/28/17 - Discharge Diagnosis (1) CAD (coronary artery disease) Is this a current diagnosis for this admission?: Yes (2) Chest pain Is this a current diagnosis for this admission?: Yes (3) Chronic obstructive pulmonary disease Is this a current diagnosis for this admission?: Yes (4) Depression Is this a current diagnosis for this admission?: Yes (5) Hyperlipidemia Is this a current diagnosis for this admission?: Yes (6) Hypertension Is this a current diagnosis for this admission?: Yes (7) Type 2 diabetes mellitus Is this a current diagnosis for this admission?: Yes - Additional Information Resuscitation Status: Full Code Home Medications: Albuterol Sulfate [Albuterol Sulfate 2.5mg/3 mL] 1 vial IH Q4 PRN 01/26/17 Albuterol Sulfate [Proair HFA] 2 puff IH Q4 PRN 01/26/17 Atorvastatin Calcium [Lipitor 40 mg Tablet] 40 mg PO QHS 01/26/17 Budesonide/Formoterol Fumarate [Symbicort HFA 160-4.5 mcg Inhaler 6 gm] 2 puff IH Q12 01/26/17 Clopidogrel Bisulfate [Plavix 75 mg Tablet] 75 mg PO DAILY 01/26/17 Hydrochlorothiazide [Hydrodiuril 12.5 mg Capsule] 12.5 mg PO QAM 01/26/17 Levocetirizine Dihydrochloride [Xyzal] 5 mg PO DAILY 01/26/17 Losartan Potassium [Cozaar 50 mg Tablet] 50 mg PO DAILY 01/26/17 Metformin HCl [Glucophage] 500 mg PO BIDACBS 01/26/17 Metoprolol Tartrate [Lopressor 100 mg Tablet] 100 mg PO Q12 01/26/17 Potassium Chloride [Klor-Con 10 Meq Tablet.sa] 10 meq PO DAILY 01/26/17 Pregabalin [Lyrica 50 mg Capsule] 50 mg PO DAILY 01/26/17 Ranitidine HCl [Zantac] 300 mg PO QHS 01/26/17 Ranolazine [Ranexa] 1,000 mg PO Q12 01/26/17 Roflumilast [Daliresp 500 mcg Tablet] 500 mcg PO ASDIR PRN 01/26/17 Sitagliptin Phos/Metformin HCl [Janumet 50-500 mg Tablet] 1 tab PO BIDACBS 01/26 Tiotropium Galva [Spiriva Handihaler 5 Cap/Kit (18 Mcg/Cap)] 1 cap IH DAILY Tramadol HCl [Ultram 50 mg Tablet] 50 mg PO Q12 01/26/17 History of Present Illness History of Present Illness: TANIA LIRIANO is a 51 year old male, he was admitted for evaluation of chest pain Hospital Course Hospital Course: Patient was admitted by Dr. Ochoa for evaluation of chest pain, he was seen by cardiology, he had a Cardiolite stress test, it was negative for acute reversible ischemia. He was seen by Dr. Salomon, cardiology,DR Ilsa hudson patient discharge home Physical Exam Vital Signs: Temp Pulse Resp BP Pulse Ox 98.1 F 66 15 144/87 H 99 01/28/17 11:34 01/28/17 11:41 01/28/17 11:41 01/28/17 11:34 01/28/17 11:34 Intake & Output 01/27/17 01/28/17 01/29/17 06:59 06:59 06:59 Intake Total 355 965 Balance 355 965 Weight 145.6 kg 143.8 kg General appearance: PRESENT: no acute distress, well-developed, well-nourished Head exam: PRESENT: atraumatic, normocephalic Eye exam: PRESENT: conjunctiva pink, EOMI, PERRLA Ear exam: PRESENT: normal external ear exam Mouth exam: PRESENT: moist, tongue midline Neck exam: PRESENT: full ROM Respiratory exam: PRESENT: clear to auscultation milind Cardiovascular exam: PRESENT: RRR, +S1, +S2 Vascular exam: PRESENT: normal capillary refill GI/Abdominal exam: PRESENT: normal bowel sounds, soft Rectal exam: PRESENT: deferred Neurological exam: PRESENT: alert, awake, oriented to person, oriented to place , oriented to time, oriented to situation, CN II-XII grossly intact Psychiatric exam: PRESENT: appropriate affect, normal mood Skin exam: PRESENT: dry, intact, warm Results Laboratory Results: 01/28/17 05:24 01/28/17 05:24 01/28/17 01/28/17 05:24 05:24 WBC 5.2 RBC 3.81 L Hgb 12.9 L Hct 36.5 L MCV 96 MCH 33.7 H MCHC 35.2 RDW 14.7 H Plt Count 178 Seg Neutrophils % 68.7 Lymphocytes % 18.9 Monocytes % 9.5 Eosinophils % 2.0 Basophils % 0.9 Absolute Neutrophils 3.6 Absolute Lymphocytes 1.0 Absolute Monocytes 0.5 Absolute Eosinophils 0.1 Absolute Basophils 0.0 Sodium 139.4 Potassium 4.5 Chloride 99 Carbon Dioxide 25 Anion Gap 15 BUN 15 Creatinine 0.95 Est GFR ( Amer) > 60 Est GFR (Non-Af Amer) > 60 Glucose 94 Calcium 9.4 01/26/17 01/26/17 01/26/17 16:05 16:05 16:05 Creatine Kinase 40 L CK-MB (CK-2) 0.50 Troponin I < 0.012 Cancelled NT-Pro-B Natriuret Pep 01/26/17 01/26/17 01/27/17 22:00 22:00 04:27 Creatine Kinase 34 L CK-MB (CK-2) 0.54 0.49 Troponin I < 0.012 < 0.012 NT-Pro-B Natriuret Pep 168 01/27/17 04:27 Creatine Kinase 26 L CK-MB (CK-2) Troponin I NT-Pro-B Natriuret Pep Impressions: Head CT 01/26/17 00:00 IMPRESSION: No significant intracranial abnormalities were identified. Other findings as noted above. Chest X-Ray 01/26/17 12:04 IMPRESSION: Sternotomy for CABG. No acute findings Cervical Spine CT 01/27/17 00:00 IMPRESSION: Multilevel central and foraminal stenosis.
[2017-01-28 13:59] VITALS: BP 118/70
--- NOTE | 2017-01-28 20:47 | PROGRESS NOTE E ---
Progress Note NAME: TANIA LIRIANO : 1965 AGE: 51Y DATE: 01/28/2017 ROOM: 336 SUBJECTIVE: The patient has had no further chest pain or discomfort. There is no arrhythmia seen on the monitor. There is no PND or orthopnea or shortness of breath. There is no wheezing. There are no TIA or CVA symptoms. There is no leg edema. OBJECTIVE: GENERAL: On examination, the patient is morbidly obese but in no acute distress. VITAL SIGNS: He is afebrile with a temperature of 98.1 degrees Fahrenheit. His pulse is 69 beats per minute. His blood pressure is 144/87. Respirations are 18 per minute. O2 sats are 99% on room air. HEENT: Head is atraumatic, normocephalic. Eyes: Pupils are equal, round and regular, reactive to light and accommodation. Extraocular movements are normal. There is no conjunctival pallor. There is no scleral icterus. ENT is negative. NECK: Supple. At present there is no JVD. Carotids are equal. There is no bruit. There is no goiter. There is no lymphadenopathy. Trachea was central. LUNGS: Clear to auscultation and percussion. There is diminished air entry, prolonged expiration without any rales, rhonchi or wheezing. On palpation, there is hyperresonance. HEART: S1 and S2 heard. There is no S3 gallop. There is a systolic murmur in the left sternal border and apex. There is no rub. ABDOMEN: Soft, nontender, obese. There is no hepatosplenomegaly. Bowel sounds are well heard. There are no tender areas or masses. EXTREMITIES: Femorals are diminished. The femorals are without any bruits. Leg pulses are diminished. There is no pedal edema. There is no DVT or cellulitis. There is no calf tenderness. CENTRAL NERVOUS SYSTEM: The patient is conscious, awake, alert and oriented x3 with no focal deficits. PSYCHIATRIC: The patient's judgment and insight are intact. His affect is normal. LABORATORY DATA: The patient's white count of 5200, hemoglobin is 12.9, hematocrit is 36.5, and his platelet count is 178,000. The patient's sodium is 139.4, potassium 4.5, chloride is 99, CO2 is 25, the patient's BUN is 15, creatinine is 0.95, GFR is greater than 60, glucose is 94 and his calcium is 9.4. Note that the patient had the resting portion of his stress test today and this shows that there is mild to moderate reversible ischemia in the anterior wall in the setting of mild scar. IMPRESSION: 1. ABNORMAL STRESS TEST. 2. CHEST PAIN MOST LIKELY ANGINA IN VIEW OF THE POSITIVE STRESS TEST. 3. CORONARY ARTERY DISEASE. History of Mi, history of LAD stent in 2012 with recurrence of symptoms and underwent coronary artery bypass graft surgery in 2013 where a saphenous vein graft was placed in the obtuse marginal 1 branch and SUAREZ to the LAD. 4. HYPERTENSION. 5. DIABETES MELLITUS TYPE 2 WITH DIABETIC NEUROPATHY. 6. COPD. 7. ASTHMA. 8. OBSTRUCTIVE SLEEP APNEA WITH DESATURATION AT NIGHT, ON NOCTURNAL O2. Does not wear CPAP. 9. MORBID OBESITY. 10. HYPERLIPIDEMIA. 11. HISTORY OF NONSUSTAINED VENTRICULAR TACHYCARDIA ON EVENT MONITOR WHICH IS NONINDUCIBLE BY ELECTROPHYSIOLOGICAL STUDY. 12. C-SPINE STENOSIS. Note that the patient's chest pain symptoms are not reproduced by coughing and the patient has no weakness in the arms. RECOMMENDATIONS: The stress test was discussed in detail with the patient. Options of the patient's stay here until Monday and then being transferred for cardiac catheterization discussed with the patient versus the option of since the patient is stable without any symptoms, would add isosorbide mononitrate 30 mg daily and the patient can see Dr. Kirby as an outpatient and have scheduled the patient for a cardiac catheterization as an outpatient, and the patient is aware of the risks of such addition. Since the patient has had these symptoms since a long time, would feel that the patient would be *------* addition of oral nitrates. The patient to continue aspirin and Plavix and also continue his beta-sonya and his Ranexa. The rest of his medications will remain the same including the ARB. NOTE: Thirty minutes spent on this patient with more than 50% of the time spent on direct patient care. Medications have been reviewed and medications added/adjusted. The patient has been given my cell phone number to call me during the weekend if there should be any issues or problems or if the patient has any doubts. This has been discussed with the attending physician covering Dr. Ochoa. I will sign off the case. Thanking you. DICTATING PHYSICIAN: BRICE BEJARANO M.D. [id number] PHY#: [id number] ID: [id number] JOB#: [id number] ACCT: [id number] cc: >
[2017-01-29] MEDS ORDERED: ISOSORBIDE MONONITRATE 30 MG TAB.ER.24H PO SCH (10:00)
--- NOTE | 2017-01-30 18:51 | DRAGON STRESS TEST REPORT ---
2 Day Intravenous Lexiscan Cardiolite stress test using single photon emmision computerized tomography. Date of Stress procedure: 7. Date of Resting procedure: 7. Ordering Provider: Dr. Brigid Salomon. Indication: Chest pain, In a patient with history of coronary artery disease, History of SD, and history of coronary artery bypass graft surgery. Coronary risk factors: Age, hypertension, diabetes mellitus, and family history of coronary artery disease. Resting EKG: Sinus Rhythm. Within normal limits. Stress EKG: No changes of ischemia. The patient had no chest pain or discomfort, and there were no arrhythmias seen. Reason for termination: Protocol. Conclusions: Normal EKG and hemodynamic response to IV Lexiscan. Nuclear data: On 8111 , the patient was given intravenous Lexiscan at a dose of 0.4 mg in 5 mL intravenously, followed by flush with normal saline. Subsequently the stress dose of 40.9 millicuries of technetium 99m sestamibi was injected intravenously. As per protocol stress gated images were obtained. On 01/28 at rest the patient was given 41.2 millicuries of technetium 99m sestamibi injected intravenously. As per protocol rest non gated SPECT images were obtained. Nuclear interpretation: Review of images showed that all segments of the myocardium had a perfusion defect involving the anterior wall, which is more pronounced in the stress images compared with the rest images this anterior wall showed mild decreased motion contraction and thickening by gated study. The rest of the myocardial segments had normal perfusion at rest, and normal perfusion post stress with IV Lexiscan. The rest of the segments of the myocardium had normal motion, contraction, and thickening by gated study. T. I D. ratio was normal at 1.17. Computer read rest, and stress left ventricular ejection fraction were 43 %, and 39 %, respectively. Visually both the stress and rest ejection fractions were normal, and greater than 55%. Conclusion: 1. There is mild to moderate scintigraphic evidence of Lexiscan induced myocardial ischemia involving the anterior wall. 2. There is scintigraphic evidence of mild myocardial infarction/scar involving the anterior wall. Recommendations: 1. Recommend cardiac catheterization. The patient wants to get this done as an outpatient by Dr. Kirby. 2. Will add nitrates to the patient's regimen oral. 3. Check echo for LVEF correlation. 4.Aggressive risk factor modification, and treating the underlying co- morbidities. MTDD
== END 2017-01-28 15:09 | disposition home or self-care (01) ==
LOC: ER 11:59 → INTOOBSV 15:20 → EH 15:20 → UNDOADMIN 16:17 → 3N 19:00 → 3S 01-27 21:53
PROVIDERS: ADMIT Family Medicine; ATTEND Family Medicine
DX: I25.10 Atherosclerotic heart disease of native coronary artery without angina pectoris (principal); R07.89 Other chest pain; R94.39 Abnormal result of other cardiovascular function study; J44.9 Chronic obstructive pulmonary disease, unspecified; F32.9 Major depressive disorder, single episode, unspecified; E78.5 Hyperlipidemia, unspecified; I10 Essential (primary) hypertension; E11.40 Type 2 diabetes mellitus with diabetic neuropathy, unspecified; E66.01 Morbid (severe) obesity due to excess calories; G47.33 Obstructive sleep apnea (adult) (pediatric); R01.1 Cardiac murmur, unspecified; K80.80 Other cholelithiasis without obstruction; I47.2 Ventricular tachycardia; I25.2 Old myocardial infarction; M48.02 Spinal stenosis, cervical region; Z79.899 Other long term (current) drug therapy; Z79.84 Long term (current) use of oral hypoglycemic drugs; Z79.02 Long term (current) use of antithrombotics/antiplatelets; Z95.5 Presence of coronary angioplasty implant and graft; Z95.1 Presence of aortocoronary bypass graft; Z99.81 Dependence on supplemental oxygen; Z82.49 Family history of ischemic heart disease and other diseases of the circulatory system; Z79.51 Long term (current) use of inhaled steroids; Z68.41 Body mass index [BMI] 40.0-44.9, adult
CPT/HCPCS: 93005; 99285; 36415 ×3; 82553 ×2; 82962 ×3; 82550 ×2; 83735; 85025 ×3; 85610; 80048 ×2; 80053; 84484 ×2; 83880; 93017; 71010; 78452; 70450; 72125; 93010; G0378 ×4; A9500; J2785; J3490 ×20; J1650 ×2; J7040; Q9969

== ENCOUNTER → 2018-03-27 | Outpatient (CLI) | payer MEDICAID ==
--- NOTE | 2018-03-27 10:16 | RADIOLOGY REPORT (SQ) ---
EXAM DESCRIPTION: CHEST PA/LATERAL COMPLETED DATE/TIME: 03/27/2018 8:50 am REASON FOR STUDY: COUGH COMPARISON: 18 17 EXAM PARAMETERS: NUMBER OF VIEWS: two views TECHNIQUE: Digital Frontal and Lateral radiographic views of the chest acquired. RADIATION DOSE: NA LIMITATIONS: none FINDINGS: LUNGS AND PLEURA: No opacities, masses or pneumothorax. No pleural effusion. MEDIASTINUM AND HILAR STRUCTURES: No masses or contour abnormalities. HEART AND VASCULAR STRUCTURES: Heart normal size. No evidence for failure. BONES: Median sternotomy changes. No acute findings. No suspicious osseous lesions. HARDWARE: None in the chest. OTHER: No other significant finding. IMPRESSION: No evidence of focal airspace disease or other acute intrathoracic process. TECHNICAL DOCUMENTATION: JOB ID: [id number] [employer]- All Rights Reserved Reading location - IP/workstation name: [email or web address]
[2018-03-28 14:40] LABS: ANTICHROMATIN AB <0.2 AI (0.0-0.9); CENTROMERE B AB <0.2 AI (0.0-0.9); JO-1 ANTIBODY (ANACOMP) <0.2 AI (0.0-0.9); SJOGREN'S ANTI-SS-B AB <0.2 AI (0.0-0.9); SJOGREN'S SS-A ANTIBODY <0.2 AI (0.0-0.9)
[2018-03-28 16:40] LABS: CYTOPLASMIC (C-ANCA) <1:20 titer (Neg:<1:20)
[2018-03-29 07:12] LABS: ATYPICAL PANCA <1:20 titer (Neg:<1:20); DNA DOUBLE STRAND ANTIBODY ANA <1 IU/mL (0-9); PERINUCLEAR (P-ANCA) <1:20 titer (Neg:<1:20)
== END ==
LOC: OD 07:59
PROVIDERS: ATTEND Physician Assistant
DX: R05 Cough (principal); R94.2 Abnormal results of pulmonary function studies
CPT/HCPCS: 36415; 71046; 86021; 86225; 86235; 86430

== ENCOUNTER 2018-04-10 15:50 | Day surgery (SDC) | payer MEDICAID ==
[2018-04-10] MEDS ORDERED: DIPHENHYDRAMINE HCL 50 MG/ML VIAL ONE (16:00)
[2018-04-10] MEDS ORDERED: ONDANSETRON HCL INJ/PF 4 MG/2 ML SDV ONE (16:00)
[2018-04-10] MEDS ORDERED: EPINEPHRINE INJ 1 MG/10 ML DISP.SYRIN ONE (16:01)
[2018-04-10] MEDS ORDERED: GLUCAGON,HUMAN RECOMB 1 MG INJ ONE (16:01)
[2018-04-10] MEDS ORDERED: FLUMAZENIL INJ 0.5 MG/5 ML VIAL ONE (16:01)
[2018-04-10] MEDS ORDERED: NALOXONE HCL INJ/PF 0.4 MG/1 ML SDV ONE (16:01)
[2018-04-10] MEDS: MIDAZOLAM 2 MG/2 ML INJ ONE ×3 (16:44→17:02)
[2018-04-10] MEDS: FENTANYL CITRATE INJ/PF 100 MCG/2 ML AMPUL ONE ×3 (16:46→17:02)
--- NOTE | 2018-04-10 17:26 | Operative Report ---
Operative Report DATE OF SURGERY: 04/10/18 Operative Report: Pre-op diagnosis: Reflux and colon cancer screening Post-op diagnosis: 1. Grade a esophagitis 2. Sigmoid diverticulosis 3. Cecal and rectal polyp 4. Internal hemorrhoids Surgery: Upper endoscopy with biopsy and Colonoscopy with polypectomy Medications: Versed 3mg, Fentanyl 150mcg IV push Tissue removed: Gastric antral, gastric body and colorectal polyps Procedure: After informed consent obtained from patient, patient's pharynx was sprayed with Hurricane and conscious sedation was achieved. The upper endoscope was then inserted into the esophagus under direct vision and advanced into the stomach and further into the duodenum. Detailed examination of the duodenum, stomach and the esophagus was then performed. A digital rectal examination was performed and this was unremarkable. The colonoscope was inserted into the rectum and advanced to the cecum. The appendiceal orifice and the terminal ileum were both identified. The mucosa was examined into details as the colonoscope was slowly pulled out of the patient. The endoscope was retroflexed in the rectum. Patient tolerated the procedure well. Findings Esophagus: Single erosion noted at the GE junction Stomach: Normal Duodenum: Normal Cecum: 6 mm serrated looking polyp removed with a hot snare Ascending colon: Normal Transverse colon: Normal Descending colon: Normal Sigmoid colon: Moderate diverticuli Rectum: 4 mm polyp removed with the hot snare. Internal hemorrhoids were also noted Plan: We will change his Zantac to Prevacid 30 mg daily. Await pathology and follow-up colonoscopy in 5 years OPERATION: .
[2018-04-10] MEDS ORDERED: ALBUTEROL SULFATE 0.083% NEB 2.5 MG/3 ML AMPUL NEB PRN (18:12)
[2018-04-10] MEDS ORDERED: ALBUTEROL SULFATE HFA (90 MCG/PUFF) 200 PUFF/8.5 GM MDI IH PRN (18:30)
[2018-04-10] MEDS ORDERED: FAMOTIDINE 20 MG TABLET PO SCH (22:00)
[2018-04-10] MEDS ORDERED: RANOLAZINE 500 MG TAB.SR.12H PO SCH (22:00)
[2018-04-10] MEDS ORDERED: ATORVASTATIN CALCIUM 40 MG TABLET PO SCH (22:00)
[2018-04-10] MEDS ORDERED: (PENDING PHARMACY ID) (Ranolazine [Ranexa] 1,000 MG) PO SCH (22:00)
[2018-04-10] MEDS ORDERED: TRAMADOL HCL 50 MG TABLET PO SCH (22:00)
[2018-04-10] MEDS ORDERED: (PENDING PHARMACY ID) (Ranitidine Hcl [Zantac] 300 MG) PO SCH (22:00)
[2018-04-10] MEDS ORDERED: METOPROLOL TARTRATE 100 MG TABLET PO SCH (22:00)
[2018-04-10] MEDS ORDERED: BUDESONIDE/FORMOTEROL 160-4.5 MCG 60 PUFF/6 GM MDI IH SCH (22:00)
[2018-04-11 08:07] VITALS: BP 146/78
[2018-04-11] MEDS ORDERED: LOSARTAN POTASSIUM 50 MG TABLET PO SCH (10:00)
[2018-04-11] MEDS ORDERED: CLOPIDOGREL BISULFATE 75 MG TABLET PO SCH (10:00)
[2018-04-11] MEDS ORDERED: POTASSIUM CHLORIDE 10 MEQ CAPSULE.ER PO SCH (10:00)
[2018-04-11] MEDS ORDERED: FUROSEMIDE 20 MG TABLET PO SCH (10:00)
[2018-04-11] MEDS ORDERED: PREGABALIN 50 MG CAPSULE PO SCH (10:00)
[2018-04-11] MEDS ORDERED: ROFLUMILAST 500 MCG TABLET PO SCH (10:00)
[2018-04-11] MEDS ORDERED: CETIRIZINE 5 MG TABLET PO SCH (10:00)
[2018-04-11] MEDS ORDERED: ROFLUMILAST PO SCH (10:00)
[2018-04-11] MEDS ORDERED: TIOTROPIUM BROMIDE DPI 5 CAP/KIT (18 MCG/CAP) IH SCH (10:00)
[2018-04-11] MEDS ORDERED: METFORMIN HCL 500 MG TABLET PO SCH (10:00)
== END 2018-04-11 08:45 | disposition home or self-care (01) ==
LOC: END 15:50 → 4S 17:45 → END 04-11 08:45
PROVIDERS: ATTEND Internal Medicine Gastroenterology
DX: K29.50 Unspecified chronic gastritis without bleeding (principal); D12.0 Benign neoplasm of cecum; K63.5 Polyp of colon; K21.9 Gastro-esophageal reflux disease without esophagitis; K57.30 Diverticulosis of large intestine without perforation or abscess without bleeding; K64.8 Other hemorrhoids; J44.9 Chronic obstructive pulmonary disease, unspecified; I10 Essential (primary) hypertension; E11.9 Type 2 diabetes mellitus without complications
CPT/HCPCS: 43239; 45385; 82962; 88305 ×2; J2250; J3490 ×6; J3010; J0171; J1200; J1610; J2310; J2405

== ENCOUNTER 2018-09-19 09:44 | Observation (INO) | payer MEDICAID ==
[2018-09-19 11:02] LABS: ABSOLUTE BASOPHILS # (AUTO) 0.1 10^3/uL (0.0-0.2); ABSOLUTE EOSINOPHILS # (AUTO) 0.1 10^3/uL (0.0-0.6); ABSOLUTE MONOCYTES (AUTO) 0.4 10^3/uL (0.1-1.4); ABSOLUTE NEUT (AUTO) 4.3 10^3/uL (1.7-8.2); BASOPHILS % (AUTO) 0.9 % (0-2); EOSINOPHILS % (AUTO) 1.4 % (0-6); HEMATOCRIT 37.5 % (37.9-51.0); HEMOGLOBIN 12.9 g/dL (13.5-17.0); LYMPHOCYTES % (AUTO) 17.6 % (13-45); MEAN CORPUSCULAR HEMOGLOBIN 32.1 pg (27.0-33.4); MEAN CORPUSCULAR HGB CONC 34.5 g/dL (32.0-36.0); MEAN CORPUSCULAR VOLUME 93 fl (80-97); MONOCYTES % (AUTO) 7.4 % (3-13); PLATELET COUNT 185 10^3/uL (150-450); RED BLOOD COUNT 4.03 10^6/uL (4.35-5.55); RED CELL DISTRIBUTION WIDTH 15.8 % (11.5-14.0); SEGMENTED NEUTROPHILS % (AUTO) 72.7 % (42-78); TOTAL CELLS COUNTED % (AUTO) 100 %; WHITE BLOOD COUNT 5.9 10^3/uL (4.0-10.5)
--- NOTE | 2018-09-19 11:32 | ER Document Report ---
ED Cardiac <ALESSANDRA QUINONEZ - Last Filed: 09/19/18 11:54> - General TRAVEL OUTSIDE OF THE [place] IN LAST 30 DAYS: No <EDITH LARSON - Last Filed: 09/19/18 15:31> - General Chief Complaint: Chest Pain Stated Complaint: CHEST PAIN Time Seen by Provider: 09/19/18 10:22 Primary Care Provider: CHICHO OCHOA MD [Primary Care Provider] - Follow up as needed Notes: Patient is a 52-year-old male who presents emergency department with a chief co mplaint of chest pain for the past 3 days. He states that is a stabbing pressure in his left shoulder blade. He did have some left arm pain and took sublingual nitroglycerin at home. He was also given sublingual nitroglycerin and 324 mg of aspirin via EMS. He states that the arm pain went away, but still had left shoulder pain. His last stress test was February 2008. Past medical history includes myocardial infarction in 2012, , and 2017. 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 Kirby from [facility]. (EDITH LARSON) - Related Data Allergies/Adverse Reactions: gabapentin Allergy (Intermediate, Verified 04/10/18 15:46) Hallucinations OSCAR Inhibitors Allergy (Mild, Verified 04/10/18 15:46) cough naproxen Allergy (Mild, Verified 04/10/18 15:46) trouble breathing Past Medical History - Social History Smoking Status: Never Smoker Chew tobacco use (# tins/day): No Frequency of alcohol use: None Drug Abuse: None Family History: Reviewed & Not Pertinent Patient has suicidal ideation: No Patient has homicidal ideation: No - Past Medical History Cardiac Medical History: Reports: Hx Coronary Artery Disease, Hx Heart Attack - x3, Hx Hypertension Denies: Hx Congestive Heart Failure, Hx Hypercholesterolemia Pulmonary Medical History: Reports: Hx Asthma, Hx COPD - HX HYPOXIA WHEN SLEEPING USES 2 L WHEN SLEEPING Denies: Hx Bronchitis, Hx Pneumonia Neurological Medical History: Reports: Hx Seizures - ONE INCIDENT, CONCLUDED WAS LIKELY CAUSED FROM HYPOXIA. Denies: Hx Cerebrovascular Accident Endocrine Medical History: Reports: Hx Diabetes Mellitus Type 2 Renal/ Medical History: Denies: Hx Peritoneal Dialysis GI Medical History: Reports: Hx Gastroesophageal Reflux Disease. Denies: Hx Hepatitis, Hx Hiatal Hernia, Hx Ulcer Musculoskeletal Medical History: Reports Hx Arthritis Psychiatric Medical History: Reports: Hx Depression Infectious Medical History: Denies: Hx Hepatitis Past Surgical History: Reports: Hx Cardiac Catheterization, Hx Cardiac Surgery - CABG, STENTS, Hx Coronary Artery Bypass Graft - Three-vessel bypass on 09/17/2013, Hx Coronary Stent - Patient received stents before and after his bypass surgery, Hx Open Heart Surgery, Hx Orthopedic Surgery - L KNEE arthroscopic surgery 2. Denies: Hx Pacemaker - Immunizations Hx Diphtheria, Pertussis, Tetanus Vaccination: Yes - 2018 Hx Pneumococcal Vaccination: 06/19/12 <EDITH LARSON - Last Filed: 09/19/18 15:31> Review of Systems <EDITH LARSON - Last Filed: 09/19/18 15:31> - Review of Systems Notes: REVIEW OF SYSTEMS: CONSTITUTIONAL : Denies recent illness. Denies recent unintentional weight loss. Denies fever, chills, or sweats. EENT: Denies eye, ear, throat, or mouth pain, discharge, or symptoms. Denies nasal or sinus congestion. CARDIOVASCULAR: See HPI RESPIRATORY: Denies shortness of breath, cough, congestion, difficulty breathing, or wheezing. GASTROINTESTINAL: Denies nausea, vomiting, and diarrhea. Denies abdominal pain. Denies constipation. GENITOURINARY: Denies difficulty urinating, burning, blood in urine, urgency or frequency. MUSCULOSKELETAL: See HPI SKIN: Denies rash, itchiness, or lesions HEMATOLOGIC : Denies easy bruising or bleeding. LYMPHATIC: Denies swollen, painful, enlarged glands. NEUROLOGICAL: Denies no numbness or tingling denies weakness. Denies headache. Denies altered mental status. Denies alteration in speech. PSYCHIATRIC: Denies stress, anxiety, alteration in sleep patterns, or depression. All other systems reviewed and negative. (EDITH LARSON) Physical Exam <EDITH LARSON - Last Filed: 09/19/18 15:31> - Vital signs Vitals: Temp Pulse Resp Pulse Ox 97.9 F 73 14 95 09/19/18 09:52 09/19/18 09:52 09/19/18 09:52 09/19/18 09:52 - Notes Notes: PHYSICAL EXAMINATION: GENERAL: Appears well, obese, well-nourished, no acute distress. HEAD: Normocephalic, atraumatic. EYES: PERRL, conjunctiva normal, all extraocular movements intact, sclera nonicteric ENT: Moist mucous membranes. NECK: Supple, no noticeable swelling, redness, rash. Normal range of motion. LUNGS: Equal breath sounds bilaterally and clear to auscultation. No wheezes rales or rhonchi. CARDIOVASCULAR: S1-S2, regular rate, regular rhythm. Radial pulses 2+, normal. ABDOMEN: Normoactive bowel sounds. Soft, nontender, no guarding, no rebound tenderness, and no masses palpated. EXTREMITIES: Normal strength and range of motion, no pitting or edema. No cyanosis. NEUROLOGICAL: Moves all extremities upon command. Strength 5/5 in all extremities. PSYCH: Normal mood, normal affect. SKIN: Warm, dry. No rash, lesions, ulcerations noted. Normal skin turgor. (EDITH LARSON) Course - Laboratory Result Diagrams: 09/19/18 10:09 09/19/18 10:09 <ALESSANDRA QUINONEZ - Last Filed: 09/19/18 11:54> - Laboratory Result Diagrams: 09/19/18 10:09 09/19/18 10:09 <EDITH LARSON - Last Filed: 09/19/18 15:31> - Re-evaluation Re-evalutation: 09/19/18 11:54 Patient seen and evaluated by myself. I agree with evaluation and plan by APC. Patient has +2/4 bilateral PT pulses. He is complaining of scapular back pain hand CTA will be added to evaluate for aortic dissection. He is otherwise stable. He will be given nitro for further pain management. (ALESSANDRA QUINONEZ) 09/19/18 14:32 CTA is negative at this time, ruling out aortic dissection. I have paged Dr. Ochoa for admission. 09/19/18 14:[address] I spoke with Dr. Ochoa, who is requesting a second troponin and to call Dr. Kirby in regards to this patient's visit. I have paged Dr. Kirby at this time. 09/19/18 15:04 I spoke with who reviewed his chart with me on the phone and states that he would like the patient to be watched overnight for ACS rule out. (EDITH LARSON) - Vital Signs Vital signs: Temp Pulse Resp BP Pulse Ox 97.9 F 74 15 122/80 99 09/19/18 09:52 09/19/18 12:00 09/19/18 14:00 09/19/18 12:01 09/19/18 14:00 - Laboratory Laboratory results interpreted by me: 09/19/18 09/19/18 10:09 10:09 RBC 4.03 L Hgb 12.9 L Hct 37.5 L RDW 15.8 H Glucose 160 H Creatine Kinase 47 L - EKG Interpretation by Me Additional EKG results interpreted by me: 09/19/18 09:55 Sinus rhythm. Rate 74; CA 164; QRS 84; QT 408; QTC 453. No ST elevations or depressions. No significant change from previous EKG. (EDITH LARSON) Discharge <ALESSANDRA QUINONEZ - Last Filed: 09/19/18 11:54> - Discharge Admitting Provider: Don Unit Admitted: Telemetry <EDITH LARSON - Last Filed: 09/19/18 15:31> - Discharge Clinical Impression: Chest pain Qualifiers: Chest pain type: unspecified Qualified Code(s): R07.9 - Chest pain, unspecified Condition: Stable Disposition: ADMITTED OBSERVATION Referrals: CHICHO OCHOA MD [Primary Care Provider] - Follow up as needed
[2018-09-19 11:40] LABS: ALANINE AMINOTRANSFERASE 37 U/L (21-72); ALKALINE PHOSPHATASE 69 U/L (38-126); ANION GAP 10 (5-19); ASPARTATE AMINO TRANSFERASE 24 U/L (17-59); BILIRUBIN,DIRECT 0.3 mg/dL (0.0-0.4); BILIRUBIN,TOTAL 0.7 mg/dL (0.2-1.3); BLOOD UREA NITROGEN 15 mg/dL (7-20); CARBON DIOXIDE 24 mmol/L (22-30); CHLORIDE 106 mmol/L (98-107); CREATINE KINASE 47 U/L (55-170); GLUCOSE 160 mg/dL (75-110); POTASSIUM 4.6 mmol/L (3.6-5.0); SODIUM 139.8 mmol/L (137-145); TOTAL PROTEIN 7.2 g/dL (6.3-8.2)
--- NOTE | 2018-09-19 11:45 | RADIOLOGY REPORT (SQ) ---
EXAM DESCRIPTION: CHEST SINGLE VIEW COMPLETED DATE/TIME: 09/19/2018 11:15 am REASON FOR STUDY: chest pain COMPARISON: 09/16/2016 EXAM PARAMETERS: NUMBER OF VIEWS: One view. TECHNIQUE: Single frontal radiographic view of the chest acquired. RADIATION DOSE: NA LIMITATIONS: None. FINDINGS: LUNGS AND PLEURA: No focal consolidation, pleural effusion or pneumothorax. MEDIASTINUM AND HILAR STRUCTURES: No discrete mass. HEART AND VASCULAR STRUCTURES: Normal heart size. Median sternotomy changes. BONES: Median sternotomy changes. No acute findings. HARDWARE: Sternotomy hardware. Loop recorder overlies left chest. OTHER: No other significant finding. IMPRESSION: No evidence of acute cardiopulmonary process. TECHNICAL DOCUMENTATION: JOB ID: [id number] [employer]- All Rights Reserved Reading location - IP/workstation name: [email or web address]
--- NOTE | 2018-09-19 11:47 | EKG REPORT ---
SEVERITY:- NORMAL ECG - SINUS RHYTHM : Confirmed by: Huseyin Barksdale MD 19-Sep-2018 11:46:44
[2018-09-19 11:52] LABS: CREATINE KINASE MB 0.39 ng/mL (<4.55)
[2018-09-19] MEDS ORDERED: NITROGLYCERIN 2% OINTMENT 1 GM PACKET TP ONE (11:52)
[2018-09-19 11:55] LABS: TROPONIN I < 0.012 ng/mL
--- NOTE | 2018-09-19 13:50 | RADIOLOGY REPORT (SQ) ---
EXAM DESCRIPTION: CTA CHEST; CTA ABDOMEN/PELVIS W WO COMPLETED DATE/TIME: 09/19/2018 1:31 pm REASON FOR STUDY: chest pain/ rule out disection COMPARISON: CT chest, 11/17/2016 TECHNIQUE: CT scan of the chest, abdomen, and pelvis performed with intravenous contrast using helic al scanning technique with dynamic intravenous contrast injection. Images reviewed with lung, soft ti ssue, and bone windows. Reconstructed coronal and sagittal MPR images reviewed. All images stored on PACS. Advanced 3D imaging as volume rendering, MIPS, SSD performed? yes All CT scanners at this facility use dose modulation, iterative reconstruction, and/or weight based d osing when appropriate to reduce radiation dose to as low as reasonably achievable (ALARA). [facility]: Dose Right [facility]: CareDose [facility]: Dose Right [facility]: Teradose 4D [facility]: Curious Sense CONTRAST TYPE AND DOSE: contrast/concentration: Isovue 350.00 mg/ml; Total Contrast Delivered: 75.0 ml; Total Saline Delivered: 60.0 ml RENAL FUNCTION: GFR > 60. RADIATION DOSE: 2902 mGy cm LIMITATIONS: None. FINDINGS: POST-CONTRAST IMAGING: AORTA AND VESSELS: No aneurysm. No dissection. Renal arteries, SMA, celiac without stenosis. Minimal calcific atherosclerosis of the infrarenal abdominal aorta. HEART: Coronary artery calcifications and/or stents status post median sternotomy and internal mamma ry LAD bypass. LUNG BASES: No significant findings. No nodules or infiltrates. LIVER: Normal size. No masses or dilated ducts. SPLEEN: Normal size. No focal lesions. PANCREAS: No masses. No significant calcifications. No adjacent inflammation or peripancreatic fluid collections. Pancreatic duct not dilated. GALLBLADDER: Small gallstones. No inflammatory changes to suggest cholecystitis. ADRENAL GLANDS: No significant masses or asymmetry. RIGHT KIDNEY AND URETER: No mass, calculi or urinary tract obstruction. LEFT KIDNEY AND URETER: No mass, calculi or urinary tract obstruction. RETROPERITONEUM: No retroperitoneal adenopathy, hemorrhage or masses. BOWEL AND PERITONEAL CAVITY: No masses or inflammatory changes. No free fluid or peritoneal masses. APPENDIX: Normal. ABDOMINAL WALL: No masses. No hernias. BONY STRUCTURES: No significant or acute findings. 3-D IMAGING: Confirms the above findings. OTHER: No other significant finding. IMPRESSION: 1. Negative examination for aortic dissection, aneurysm, or other acute aortic syndrome . There is minimal calcific atherosclerosis of the abdominal aorta. 2. Gallstones. 3. Coronary artery disease. TECHNICAL DOCUMENTATION: JOB ID: [id number] Quality ID # [id number]: Final reports with documentation of one or more dose reduction techniques (e.g., Au tomated exposure control, adjustment of the mA and/or kV according to patient size, use of iterative reconstruction technique) 2010 [employer]- All Rights Reserved Reading location - IP/workstation name: [email or web address]
--- NOTE | 2018-09-19 13:50 | RADIOLOGY REPORT (SQ) ---
EXAM DESCRIPTION: CTA CHEST; CTA ABDOMEN/PELVIS W WO COMPLETED DATE/TIME: 09/19/2018 1:31 pm REASON FOR STUDY: chest pain/ rule out disection COMPARISON: CT chest, 11/17/2016 TECHNIQUE: CT scan of the chest, abdomen, and pelvis performed with intravenous contrast using helic al scanning technique with dynamic intravenous contrast injection. Images reviewed with lung, soft ti ssue, and bone windows. Reconstructed coronal and sagittal MPR images reviewed. All images stored on PACS. Advanced 3D imaging as volume rendering, MIPS, SSD performed? yes All CT scanners at this facility use dose modulation, iterative reconstruction, and/or weight based d osing when appropriate to reduce radiation dose to as low as reasonably achievable (ALARA). [facility]: Dose Right [facility]: CareDose [facility]: Dose Right [facility]: Teradose 4D [facility]: Moblication CONTRAST TYPE AND DOSE: contrast/concentration: Isovue 350.00 mg/ml; Total Contrast Delivered: 75.0 ml; Total Saline Delivered: 60.0 ml RENAL FUNCTION: GFR > 60. RADIATION DOSE: 2902 mGy cm LIMITATIONS: None. FINDINGS: POST-CONTRAST IMAGING: AORTA AND VESSELS: No aneurysm. No dissection. Renal arteries, SMA, celiac without stenosis. Minimal calcific atherosclerosis of the infrarenal abdominal aorta. HEART: Coronary artery calcifications and/or stents status post median sternotomy and internal mamma ry LAD bypass. LUNG BASES: No significant findings. No nodules or infiltrates. LIVER: Normal size. No masses or dilated ducts. SPLEEN: Normal size. No focal lesions. PANCREAS: No masses. No significant calcifications. No adjacent inflammation or peripancreatic fluid collections. Pancreatic duct not dilated. GALLBLADDER: Small gallstones. No inflammatory changes to suggest cholecystitis. ADRENAL GLANDS: No significant masses or asymmetry. RIGHT KIDNEY AND URETER: No mass, calculi or urinary tract obstruction. LEFT KIDNEY AND URETER: No mass, calculi or urinary tract obstruction. RETROPERITONEUM: No retroperitoneal adenopathy, hemorrhage or masses. BOWEL AND PERITONEAL CAVITY: No masses or inflammatory changes. No free fluid or peritoneal masses. APPENDIX: Normal. ABDOMINAL WALL: No masses. No hernias. BONY STRUCTURES: No significant or acute findings. 3-D IMAGING: Confirms the above findings. OTHER: No other significant finding. IMPRESSION: 1. Negative examination for aortic dissection, aneurysm, or other acute aortic syndrome . There is minimal calcific atherosclerosis of the abdominal aorta. 2. Gallstones. 3. Coronary artery disease. TECHNICAL DOCUMENTATION: JOB ID: [id number] Quality ID # [id number]: Final reports with documentation of one or more dose reduction techniques (e.g., Au tomated exposure control, adjustment of the mA and/or kV according to patient size, use of iterative reconstruction technique) 2010 [employer]- All Rights Reserved Reading location - IP/workstation name: [email or web address]
[2018-09-19] MEDS ORDERED: OXYCODONE-ACETAMINOPHEN 5-325 MG TABLET PO PRN (15:28)
[2018-09-19] MEDS ORDERED: ACETAMINOPHEN 325 MG TABLET PO PRN (15:28)
[2018-09-19] MEDS ORDERED: DEXTROSE 50%-WATER 25 GM/50 ML DISP.SYRIN IV PRN ×2 (15:31)
[2018-09-19] MEDS ORDERED: DEXTROSE 40% GEL 15 GM TUBE PO PRN ×2 (15:31)
[2018-09-19] MEDS ORDERED: GLUCAGON,HUMAN RECOMB 1 MG INJ IM PRN (15:31)
[2018-09-19] MEDS ORDERED: IPRATROPIUM BROMIDE 0.02% NEB 0.5 MG/2.5 ML AMPUL NEB PRN (15:31)
--- NOTE | 2018-09-19 17:00 | PDOC H&P ---
History of Present Illness Admission Date/PCP: CHICHO GREEN MD Patient complains of: Chest pain History of Present Illness: TANIA LIRIANO is a 52 year old male This is a 52-year-old male with a significant complex cardiac history including the coronary artery disease chronic systolic heart failure with the mild LV systolic dysfunction's mitral regurgitations and a history of the ventricular arrhythmias. He had a normal EPS performed by Dr. Ismael Green for the nonsustained ventricular tachycardia that was noted on event monitor. He also underwent further [facility] 06/2016 and was found to be able to vessel obstructive coronary artery disease with the patent bypass graft and mild LV systolic dysfunction's with EF is 50%'s and mild MR and no significant pulmonary hypertension's. Patients also went to the [facility] back in the April 2018 patient was admitted for the chest pain and stress test no ischemia 43% EF and echocardiogram was done with EF is 50-55%'s was a Patients came to the emergency department with a 3 days history of the left shoulder and the chest pain Patient had a CT angiogram was done was negative for any dissections any PE dutch ent to cardiac set of enzyme was negative Patient seen by the Dr. Kirby at [place] and ER physician discussed with him and suggest to keep the patient's overnight The not from the [facility] cardiology suggest that the patient pretty much medical management 1 dose of the nitroglycerin Patient also have ongoing pain issue which patient is currently taking the tramadol and the pain medications Patient also have a ongoing and nocturnal hypoxia and a sleep apnea problem unable to use a CPAP Patient also have a type 2 diabetes currently all stable Patient is feeling better in the emergency departments Patient is denied any short of breath other than usual Past Medical History Cardiac Medical History: Reports: Congestive Heart Failure, Coronary Artery Disease, Myocardial Infarction - x3, Hypertension, Heart Murmur Denies: Hyperlipidema Pulmonary Medical History: Reports: Asthma, Chronic Obstructive Pulmonary Disease (COPD) - HX HYPOXIA WHEN SLEEPING USES 2 L WHEN SLEEPING Denies: Bronchitis, Pneumonia Neurological Medical History: Reports: Seizures - ONE INCIDENT, CONCLUDED WAS LIKELY CAUSED FROM HYPOXIA Endocrine Medical History: Reports: Diabetes Mellitus Type 2 GI Medical History: Reports: Gastroesophageal Reflux Disease Denies: Hepatitis, Hiatal Hernia Musculoskeltal Medical History: Reports: Arthritis Psychiatric Medical History: Reports: Depression Hematology: Denies: Anemia, Sickle Cell Disease Past Surgical History Past Surgical History: Reports: Cardiac Catheterization, Coronary Artery Bypass Graft - Three-vessel bypass on 09/17/2013, Coronary Stent - Patient received stents before and after his bypass surgery, Orthopedic Surgery - L KNEE arthroscopic surgery 2 Denies: Pacemaker Social History Smoking Status: Never Smoker Frequency of Alcohol Use: None Hx Recreational Drug Use: No Hx Prescription Drug Abuse: No Family History Family History: Reviewed & Not Pertinent, CAD Parental Family History Reviewed: Yes Children Family History Reviewed: Yes Sibling(s) Family History Reviewed.: Yes Medication/Allergy Home Medications: Atorvastatin Calcium [Lipitor 40 mg Tablet] 40 g PO DAILY 09/19/18 Atorvastatin Calcium [Lipitor 40 mg Tablet] 40 mg PO QHS 09/19/18 Budesonide/Formoterol Fumarate [Symbicort HFA 160-4.5 mcg Inhaler 6 gm] 2 puff IN BID 09/19/18 Clopidogrel Bisulfate [Plavix 75 mg Tablet] 75 mg PO DAILY 09/19/18 Dapagliflozin Propanediol [Farxiga] 10 mg PO DAILY 09/19/18 Furosemide [Lasix 20 mg Tablet] 20 mg PO DAILY 09/19/18 Hydrocodone Bit/Acetaminophen [Hydrocodon-Acetaminophen 5-325] 1 tab PO DAILY PRN 09/19/18 Ipratropium [place] [Atrovent 0.02% Neb 0.5 mg/2.5 ml Ampul] 1 vial DAILY 09/19/18 Latanoprost/Pf [Latanoprost 0.005% Eye Drop] 1 drop DAILY 09/19/18 Levocetirizine Dihydrochloride [24Hr Allergy Relief] 5 mg PO DAILY 09/19/18 Losartan Potassium 50 mg PO DAILY 09/19/18 Metformin HCl 1 tab PO DAILY 09/19/18 Metoprolol Tartrate [Lopressor] 100 mg PO DAILY 09/19/18 Omeprazole 20 mg PO DAILY 09/19/18 Potassium Chloride [K-Tab ER] 10 meq PO DAILY 09/19/18 Pregabalin [Lyrica 75 mg Capsule] 75 mg PO BID 09/19/18 Ranolazine [Ranexa] 1,000 mg PO DAILY 09/19/18 Roflumilast [Daliresp 500 mcg Tablet] 500 mcg PO DAILY 09/19/18 Sitagliptin Phos/Metformin HCl [Janumet 50-500 mg Tablet] 1 tab PO DAILY 09/19/18 Tiotropium [place] [Spiriva Handihaler 5 Cap/Kit (18 Mcg/Cap)] 2 puff IH BID 09/19/18 Triamcinolone Acetonide [Aristocort 0.1% Cream] 1 applic DAILY 09/19/18 Allergies/Adverse Reactions: gabapentin Allergy (Intermediate, Verified 04/10/18 15:46) Hallucinations OSCAR Inhibitors Allergy (Mild, Verified 04/10/18 15:46) cough naproxen Allergy (Mild, Verified 04/10/18 15:46) trouble breathing Review of Systems Constitutional: ABSENT: chills, fever(s), headache(s), weight gain, weight loss Eyes: ABSENT: visual disturbances Ears: ABSENT: hearing changes Cardiovascular: PRESENT: chest pain, dyspnea on exertion. ABSENT: edema, orthropnea, palpitations Respiratory: ABSENT: cough, hemoptysis Gastrointestinal: ABSENT: abdominal pain, constipation, diarrhea, hematemesis, hematochezia, nausea, vomiting Genitourinary: ABSENT: dysuria, hematuria Musculoskeletal: ABSENT: joint swelling Integumentary: ABSENT: rash, wounds Neurological: ABSENT: abnormal gait, abnormal speech, confusion, dizziness, focal weakness, syncope Psychiatric: ABSENT: anxiety, depression, homidical ideation, suicidal ideation Endocrine: ABSENT: cold intolerance, heat intolerance, menstrual abnormalities, polydipsia, polyuria Hematologic/Lymphatic: ABSENT: easy bleeding, easy bruising, lymphadenopathy Physical Exam Vital Signs: Temp Pulse Resp BP Pulse Ox 97.9 F 74 15 122/80 99 09/19/18 09:52 09/19/18 12:00 09/19/18 14:00 09/19/18 12:01 09/19/18 14:00 Intake & Output 09/18/18 09/19/18 09/20/18 06:59 06:59 06:59 Weight 158.757 kg General appearance: PRESENT: no acute distress, morbidly obese, well-developed, well-nourished Head exam: PRESENT: atraumatic, normocephalic Eye exam: PRESENT: conjunctiva pink, EOMI, PERRLA. ABSENT: scleral icterus Ear exam: PRESENT: normal external ear exam Mouth exam: PRESENT: moist, tongue midline Neck exam: PRESENT: full ROM. ABSENT: carotid bruit, JVD, lymphadenopathy, thyromegaly Respiratory exam: PRESENT: clear to auscultation milind Cardiovascular exam: PRESENT: RRR. ABSENT: diastolic murmur, rubs, systolic murmur Vascular exam: PRESENT: normal capillary refill GI/Abdominal exam: PRESENT: normal bowel sounds, soft. ABSENT: distended, guarding, mass, organolmegaly, rebound, tenderness Rectal exam: PRESENT: deferred Extremities exam: ABSENT: pedal edema Musculoskeletal exam: PRESENT: ambulatory Neurological exam: PRESENT: alert, awake, oriented to person, oriented to place, oriented to time, oriented to situation, CN II-XII grossly intact. ABSENT: motor sensory deficit Psychiatric exam: PRESENT: appropriate affect, normal mood. ABSENT: homicidal ideation, suicidal ideation Skin exam: PRESENT: dry, intact, warm. ABSENT: cyanosis, rash Results Laboratory Results: 09/19/18 10:09 09/19/18 10:09 09/19/18 09/19/18 10:09 10:09 WBC 5.9 RBC 4.03 L Hgb 12.9 L Hct 37.5 L MCV 93 MCH 32.1 MCHC 34.5 RDW 15.8 H Plt Count 185 Seg Neutrophils % 72.7 Lymphocytes % 17.6 Monocytes % 7.4 Eosinophils % 1.4 Basophils % 0.9 Absolute Neutrophils 4.3 Absolute Lymphocytes 1.0 Absolute Monocytes 0.4 Absolute Eosinophils 0.1 Absolute Basophils 0.1 Sodium 139.8 Potassium 4.6 Chloride 106 Carbon Dioxide 24 Anion Gap 10 BUN 15 Creatinine 0.81 Est GFR ( Amer) > 60 Est GFR (Non-Af Amer) > 60 Glucose 160 H Calcium 9.0 Total Bilirubin 0.7 AST 24 ALT 37 Alkaline Phosphatase 69 Total Protein 7.2 Albumin 4.0 09/19/18 09/19/18 09/19/18 10:09 10:09 13:56 Creatine Kinase 47 L CK-MB (CK-2) 0.39 Troponin I < 0.012 < 0.012 Impressions: Chest X-Ray 09/19/18 10:37 IMPRESSION: No evidence of acute cardiopulmonary process. Chest/Abdomen CTA 09/19/18 11:52 IMPRESSION: 1. Negative examination for aortic dissection, aneurysm, or other acute aortic syndrome. There is minimal calcific atherosclerosis of the abdominal aorta. 2. Gallstones. 3. Coronary artery disease. Abdomen/Pelvis CTA 09/19/18 11:53 IMPRESSION: 1. Negative examination for aortic dissection, aneurysm, or other acute aortic syndrome. There is minimal calcific atherosclerosis of the abdominal aorta. 2. Gallstones. 3. Coronary artery disease. Assessment & Plan - Diagnosis (1) Chest pain Qualifiers: Chest pain type: unspecified Qualified Code(s): R07.9 - Chest pain, unspecified Is this a current diagnosis for this admission?: Yes Plan: With the multiple risk factors significant coronary artery disease as per discussed with the Dr. Kirby will admit the patient's consult the local physical damage appraiser rule out acute coronary syndromes (2) CAD (coronary artery disease) Qualifiers: Coronary Disease-Associated Artery/Lesion type: unspecified vessel or lesion type [place] vs. transplanted heart: [place] heart Associated angina: angina presence unspecified Qualified Code(s): I25.10 - Atherosclerotic heart disease of [place] coronary artery without angina pectoris Is this a current diagnosis for this admission?: Yes Plan: Patient is currently see [facility]ology stress test was done in 2018 in April was all stable per the cardiology not (3) Chronic obstructive pulmonary disease Qualifiers: COPD type: unspecified COPD Qualified Code(s): J44.9 - Chronic obstructive pulmonary disease, unspecified Is this a current diagnosis for this admission?: Yes Plan: Continues to nebulizer treatments as needed (4) Depression Qualifiers: Depression Type: major depressive disorder Major depression episode severity: moderate Is this a current diagnosis for this admission?: Yes Plan: Currently all stable (5) Hyperlipidemia Qualifiers: Hyperlipidemia type: unspecified Qualified Code(s): E78.5 - Hyperlipidemia, unspecified Is this a current diagnosis for this admission?: Yes Plan: Continue a current medications (6) Hypertension Qualifiers: Hypertension type: essential hypertension Qualified Code(s): I10 - Essential (primary) hypertension Is this a current diagnosis for this admission?: Yes Plan: Continues to medications (7) Morbid obesity Is this a current diagnosis for this admission?: Yes (8) Nonsustained ventricular tachycardia Is this a current diagnosis for this admission?: Yes Plan: Patient see Dr. 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 Is this a current diagnosis for this admission?: Yes Plan: Continues a sliding scale We will hold the metformin due to the IV contrast (10) Sleep apnea Qualifiers: Sleep apnea type: unspecified type Qualified Code(s): G47.30 - Sleep apnea, unspecified Is this a current diagnosis for this admission?: Yes Plan: he is currently uses CPAP but having some difficulty and currently working with the sleep center - Time Time Spent: 30 to 50 Minutes Medications reviewed and adjusted accordingly: Yes Anticipated discharge: Home Within: within 24 hours - Inpatient Certification Based on my medical assessment, after consideration of the patient's comorbidities, presenting symptoms, or acuity I expect that the services needed warrant INPATIENT care.: Yes I certify that my determination is in accordance with my understanding of Medicare's requirements for reasonable and necessary INPATIENT services [42 CFR 412.3e].: Yes Medical Necessity: Significant Comorbidiites Make Outpatient Treatment Too Risky, Need Close Monitoring Due to Risk of Patient Decompensation Post Hospital Care: D/C Mine Inspector Documentation - Plan Summary Plan Summary: Admit the patient in telemetry Consult cardiology with a significant risk factor Continues to monitor
[2018-09-19] MEDS ORDERED: TIOTROPIUM BROMIDE DPI 5 CAP/KIT (18 MCG/CAP) IH SCH (18:00)
[2018-09-19] MEDS: INSULIN LISPRO 100 UNIT/ML 3 ML VIAL SUBCUT SCH (18:41)
[2018-09-19 20:52] LABS: CREATINE KINASE MB 0.37 ng/mL (<4.55)
[2018-09-19 20:55] LABS: TROPONIN I < 0.012 ng/mL
[2018-09-19] MEDS ORDERED: LATANOPROST 0.005% OPH SOLN 2.5 ML OU SCH (22:00)
[2018-09-19] MEDS ORDERED: ATORVASTATIN CALCIUM 40 MG TABLET PO SCH (22:00)
[2018-09-19] MEDS ORDERED: (PENDING PHARMACY ID) (Tiotropium Bromide [Spiriva Respimat] 2 PUFF) IH SCH (22:00)
[2018-09-19] MEDS: METOPROLOL TARTRATE 100 MG TABLET PO SCH (22:24)
[2018-09-19] MEDS: HYDROCODONE/ACETAMINOPHEN 5-325 MG TABLET PO PRN (22:24)
[2018-09-19] MEDS: PREGABALIN 75 MG CAPSULE PO SCH (22:25)
[2018-09-19] MEDS: ENOXAPARIN SODIUM INJ 40 MG/0.4 ML DISP.SYRIN SUBCUT SCH (22:26)
[2018-09-19] MEDS: RANOLAZINE 500 MG TAB.SR.12H PO SCH (22:27)
[2018-09-20] MEDS: INSULIN LISPRO 100 UNIT/ML 3 ML VIAL SUBCUT SCH ×3 (01:23→11:40)
[2018-09-20 04:07] LABS: ABSOLUTE BASOPHILS # (AUTO) 0.1 10^3/uL (0.0-0.2); ABSOLUTE EOSINOPHILS # (AUTO) 0.1 10^3/uL (0.0-0.6); ABSOLUTE LYMPHOCYTES (AUTO) 1.4 10^3/uL (0.5-4.7); ABSOLUTE MONOCYTES (AUTO) 0.6 10^3/uL (0.1-1.4); ABSOLUTE NEUT (AUTO) 4.4 10^3/uL (1.7-8.2); EOSINOPHILS % (AUTO) 1.7 % (0-6); HEMATOCRIT 35.8 % (37.9-51.0); HEMOGLOBIN 12.4 g/dL (13.5-17.0); LYMPHOCYTES % (AUTO) 21.6 % (13-45); MEAN CORPUSCULAR HEMOGLOBIN 32.4 pg (27.0-33.4); MEAN CORPUSCULAR HGB CONC 34.6 g/dL (32.0-36.0); MEAN CORPUSCULAR VOLUME 94 fl (80-97); MONOCYTES % (AUTO) 8.9 % (3-13); PLATELET COUNT 168 10^3/uL (150-450); RED BLOOD COUNT 3.83 10^6/uL (4.35-5.55); RED CELL DISTRIBUTION WIDTH 15.5 % (11.5-14.0); SEGMENTED NEUTROPHILS % (AUTO) 66.8 % (42-78); TOTAL CELLS COUNTED % (AUTO) 100 %; WHITE BLOOD COUNT 6.5 10^3/uL (4.0-10.5)
[2018-09-20 04:35] LABS: ANION GAP 7 (5-19); BLOOD UREA NITROGEN 17 mg/dL (7-20); CARBON DIOXIDE 27 mmol/L (22-30); CHLORIDE 103 mmol/L (98-107); GLUCOSE 156 mg/dL (75-110); POTASSIUM 3.9 mmol/L (3.6-5.0); SODIUM 137.4 mmol/L (137-145)
[2018-09-20 04:43] LABS: CREATINE KINASE MB 0.29 ng/mL (<4.55)
[2018-09-20 04:47] LABS: TROPONIN I < 0.012 ng/mL
[2018-09-20] MEDS ORDERED: PANTOPRAZOLE SODIUM 20 MG TABLET.DR PO SCH (06:00)
[2018-09-20] MEDS ORDERED: SITAGLIPTIN PHOSPHATE 50 MG TABLET PO SCH (08:00)
[2018-09-20] MEDS ORDERED: (PENDING PHARMACY ID) (Sitagliptin Phos/Metformin Hcl [Janumet 50-500 Mg Tablet] 1 TAB) PO SCH (08:00)
[2018-09-20] MEDS ORDERED: METFORMIN HCL 500 MG TABLET PO SCH (08:00)
--- NOTE | 2018-09-20 08:12 | EKG REPORT ---
SEVERITY:- ABNORMAL ECG - SINUS RHYTHM NONSPECIFIC T ABNORMALITIES, LATERAL LEADS : Confirmed by: Huseyin Barksdale MD 20-Sep-2018 08:12:10
[2018-09-20] MEDS: HYDROCODONE/ACETAMINOPHEN 5-325 MG TABLET PO PRN (08:19)
[2018-09-20] MEDS ORDERED: CLOPIDOGREL BISULFATE 75 MG TABLET PO SCH (10:00)
[2018-09-20] MEDS ORDERED: ROFLUMILAST 500 MCG TABLET PO SCH (10:00)
[2018-09-20] MEDS ORDERED: ATORVASTATIN CALCIUM 40 MG TABLET PO SCH (10:00)
[2018-09-20] MEDS ORDERED: (PENDING PHARMACY ID) (Roflumilast [Daliresp 500 Mcg Tablet] 500 MCG) PO SCH (10:00)
[2018-09-20] MEDS ORDERED: CETIRIZINE 5 MG TABLET PO SCH (10:00)
[2018-09-20] MEDS ORDERED: (PENDING PHARMACY ID) (Latanoprost/Pf [Latanoprost 0.005% Eye Drop] 1 DROP) BTH_EYE SCH (10:00)
[2018-09-20] MEDS ORDERED: POTASSIUM CHLORIDE 10 MEQ CAPSULE.ER PO SCH (10:00)
[2018-09-20] MEDS ORDERED: (PENDING PHARMACY ID) (Dapagliflozin Propanediol [Farxiga] 10 MG) PO SCH (10:00)
[2018-09-20] MEDS ORDERED: (PENDING PHARMACY ID) (Levocetirizine Dihydrochloride [24hr Allergy Relief] 5 MG) PO SCH (10:00)
[2018-09-20] MEDS ORDERED: LOSARTAN POTASSIUM 50 MG TABLET PO SCH (10:00)
[2018-09-20] MEDS ORDERED: TRIAMCINOLONE ACETONIDE 0.1% CREAM 15 GM TOP SCH (10:00)
[2018-09-20] MEDS ORDERED: FLUTICASONE/VILANTEROL 200-25 MCG/DOSE IH SCH (10:00)
[2018-09-20] MEDS ORDERED: (PENDING PHARMACY ID) (Ranolazine [Ranexa] 1,000 MG) PO SCH (10:00)
[2018-09-20] MEDS ORDERED: FUROSEMIDE 20 MG TABLET PO SCH (10:00)
[2018-09-20] MEDS: METOPROLOL TARTRATE 100 MG TABLET PO SCH (10:18)
[2018-09-20] MEDS: PREGABALIN 75 MG CAPSULE PO SCH (10:18)
[2018-09-20] MEDS: ENOXAPARIN SODIUM INJ 40 MG/0.4 ML DISP.SYRIN SUBCUT SCH (10:20)
[2018-09-20] MEDS: RANOLAZINE 500 MG TAB.SR.12H PO SCH (10:20)
--- NOTE | 2018-09-20 12:35 | PDOC DISCHARGE SUMMARY ---
General - Admit/Disc Date/PCP Admission Date/Primary Care Provider: 09/19/18 16:52 CHICHO OCHOA MD Discharge Date: 09/20/18 - Discharge Diagnosis (1) Chest pain Is this a current diagnosis for this admission?: Yes Summary: Patient CT angiogram is negative and all cardiac workup is negative per cardiology all stable follow outpatients (2) CAD (coronary artery disease) Is this a current diagnosis for this admission?: Yes Summary: Currently all stable patient see a [facility] cardiology (3) Chronic obstructive pulmonary disease Is this a current diagnosis for this admission?: Yes Summary: Currently all stable (4) Depression Is this a current diagnosis for this admission?: Yes (5) Hyperlipidemia Is this a current diagnosis for this admission?: Yes Summary: Continues to current medications (6) Hypertension Is this a current diagnosis for this admission?: Yes Summary: Currently all stable (7) Morbid obesity Is this a current diagnosis for this admission?: Yes (8) Nonsustained ventricular tachycardia Is this a current diagnosis for this admission?: Yes Summary: Patient is currently see a [facility] cardiology (9) Type 2 diabetes mellitus Is this a current diagnosis for this admission?: Yes Summary: Currently all stable (10) Sleep apnea Is this a current diagnosis for this admission?: Yes Summary: According to the patient he does not require a CPAP but he needed 2 L nasal cannulae at nighttime - Additional Information Resuscitation Status: Full Code Discharge Diet: Diabetic Discharge Activity: Activity As Tolerated Home Medications: Atorvastatin Calcium [Lipitor 40 mg Tablet] 40 mg PO QHS 09/19/18 Budesonide/Formoterol Fumarate [Symbicort HFA 160-4.5 mcg Inhaler 6 gm] 2 puff IH Q12 09/19/18 Clopidogrel Bisulfate [Plavix 75 mg Tablet] 75 mg PO DAILY 09/19/18 Dapagliflozin Propanediol [Farxiga] 10 mg PO DAILY 09/19/18 Furosemide [Lasix 20 mg Tablet] 20 mg PO DAILY 09/19/18 Hydrocodone Bit/Acetaminophen [Hydrocodon-Acetaminophen 5-325] 1 tab PO Q6HP PRN 09/19/18 Ipratropium [place] [Atrovent 0.02% Neb 0.5 mg/2.5 ml Ampul] 2.5 ml NEB Q4HP PRN 09/19/18 Latanoprost/Pf [Latanoprost 0.005% Eye Drop] 1 drop OU QHS 09/19/18 Levocetirizine Dihydrochloride [24Hr Allergy Relief] 5 mg PO DAILY 09/19/18 Losartan Potassium 50 mg PO DAILY 09/19/18 Metoprolol Tartrate [Lopressor] 100 mg PO Q12 09/19/18 Omeprazole 20 mg PO DAILY 09/19/18 Potassium Chloride [K-Tab ER] 10 meq PO [id number] 09/19/18 Pregabalin [Lyrica 75 mg Capsule] 75 mg PO Q12 09/19/18 Ranolazine [Ranexa] 1,000 mg PO Q12 09/19/18 Roflumilast [Daliresp 500 mcg Tablet] 500 mcg PO DAILY 09/19/18 Sitagliptin Phos/Metformin HCl [Janumet 50-500 mg Tablet] 1 tab PO BIDBS 09/19/18 Tiotropium [place] [Spiriva Respimat] 2 puff IH Q12 09/19/18 Triamcinolone Acetonide [Aristocort 0.1% Cream] 1 applic TOP BID 09/19/18 History of Present Illness History of Present Illness: TANIA LIRIANO is a 52 year old male This is a 52-year-old male with a significant complex cardiac history including the coronary artery disease chronic systolic heart failure with the mild LV systolic dysfunction's mitral regurgitations and a history of the ventricular arrhythmias. He had a normal EPS performed by Dr. Ismael Ochoa for the nonsustained ventricular tachycardia that was noted on event monitor. He also underwent further [facility] 06/2016 and was found to be able to vessel obstructive coronary artery disease with the patent bypass graft and mild LV systolic dysfunction's with EF is 50%'s and mild MR and no significant pulmonary hypertension's. Patients also went to the [facility] back in the April 2018 patient was admitted for the chest pain and stress test no ischemia 43% EF and echocardiogram was done with EF is 50-55%'s was a Patients came to the emergency department with a 3 days history of the left shoulder and the chest pain Patient had a CT angiogram was done was negative for any dissections any PE patient to cardiac set of enzyme was negative Patient seen by the Dr. Kirby at [facility] and ER physician discussed with him and suggest to keep the patient's overnight The not from the [facility] cardiology suggest that the patient pretty much medical management 1 dose of the nitroglycerin Patient also have ongoing pain issue which patient is currently taking the tramadol and the pain medications Patient also have a ongoing and nocturnal hypoxia and a sleep apnea problem unable to use a CPAP Patient also have a type 2 diabetes currently all stable Patient is feeling better in the emergency departments Patient is denied any short of breath other than usual Hospital Course Hospital Course: This is a 52-year-old male present in the emergency department with the chest pain as above complaint call his cardiology office and suggest to come in the ER According to the patient's cardiology suggest to rule out any acute coronary syndromes and he will follow as outpatient while patient have a very extensive workup was done recently no need for further workup Patient admitting in the hospital do the CT angiogram was negative for any acute finding and also EKG and cardiac enzyme is all negative Patient seen by the local cardiology Dr. Salomon Patient's walk in the hallway without any problems Patient is denied any further chest pain Patient's other medical problem is all stable Patient's discharge home and follow outpatient cardiology Physical Exam Vital Signs: Temp Pulse Resp BP Pulse Ox 98.1 F 76 18 163/96 H 95 09/20/18 11:10 09/20/18 11:10 09/20/18 11:10 09/20/18 11:10 09/20/18 11:10 Intake & Output 09/19/18 09/20/18 09/21/18 06:59 06:59 06:59 Intake Total 450 Balance 450 Weight 148.1 kg General appearance: PRESENT: no acute distress, well-developed, well-nourished Head exam: PRESENT: atraumatic, normocephalic Eye exam: PRESENT: conjunctiva pink, EOMI, PERRLA. ABSENT: scleral icterus Ear exam: PRESENT: normal external ear exam Mouth exam: PRESENT: moist, tongue midline Neck exam: PRESENT: full ROM. ABSENT: carotid bruit, JVD, lymphadenopathy, thyromegaly Respiratory exam: PRESENT: clear to auscultation milind Cardiovascular exam: PRESENT: RRR. ABSENT: diastolic murmur, rubs, systolic murmur Vascular exam: PRESENT: normal capillary refill GI/Abdominal exam: PRESENT: normal bowel sounds, soft. ABSENT: distended, guarding, mass, organolmegaly, rebound, tenderness Rectal exam: PRESENT: deferred Musculoskeletal exam: PRESENT: ambulatory Neurological exam: PRESENT: alert, awake, oriented to person, oriented to place, oriented to time, oriented to situation, CN II-XII grossly intact. ABSENT: motor sensory deficit Psychiatric exam: PRESENT: appropriate affect, normal mood. ABSENT: homicidal ideation, suicidal ideation Skin exam: PRESENT: dry, intact, warm. ABSENT: cyanosis, rash Results Laboratory Results: 09/20/18 03:50 09/20/18 03:50 09/20/18 09/20/18 03:50 03:50 WBC 6.5 RBC 3.83 L Hgb 12.4 L Hct 35.8 L MCV 94 MCH 32.4 MCHC 34.6 RDW 15.5 H Plt Count 168 Seg Neutrophils % 66.8 Lymphocytes % 21.6 Monocytes % 8.9 Eosinophils % 1.7 Basophils % 1.0 Absolute Neutrophils 4.4 Absolute Lymphocytes 1.4 Absolute Monocytes 0.6 Absolute Eosinophils 0.1 Absolute Basophils 0.1 Sodium 137.4 Potassium 3.9 Chloride 103 Carbon Dioxide 27 Anion Gap 7 BUN 17 Creatinine 0.96 Est GFR ( Amer) > 60 Est GFR (Non-Af Amer) > 60 Glucose 156 H Calcium 9.0 09/19/18 09/19/18 09/19/18 10:09 10:09 13:56 Creatine Kinase 47 L CK-MB (CK-2) 0.39 Troponin I < 0.012 < 0.012 NT-Pro-B Natriuret Pep 09/19/18 09/19/18 09/19/18 13:56 13:56 20:05 Creatine Kinase 45 L 44 L CK-MB (CK-2) 0.43 Troponin I Cancelled NT-Pro-B Natriuret Pep 09/19/18 09/20/18 09/20/18 20:05 03:50 03:50 Creatine Kinase 42 L CK-MB (CK-2) 0.37 0.29 Troponin I < 0.012 < 0.012 NT-Pro-B Natriuret Pep 09/20/18 03:50 Creatine Kinase CK-MB (CK-2) Troponin I NT-Pro-B Natriuret Pep 61 Impressions: Chest X-Ray 09/19/18 10:37 IMPRESSION: No evidence of acute cardiopulmonary process. Chest/Abdomen CTA 09/19/18 11:52 IMPRESSION: 1. Negative examination for aortic dissection, aneurysm, or other acute aortic syndrome. There is minimal calcific atherosclerosis of the a bdominal aorta. 2. Gallstones. 3. Coronary artery disease. Abdomen/Pelvis CTA 09/19/18 11:53 IMPRESSION: 1. Negative examination for aortic dissection, aneurysm, or other acute aortic syndrome. There is minimal calcific atherosclerosis of the abdominal aorta. 2. Gallstones. 3. Coronary artery disease. Qualifiers - * PATIENT BEING DISCHARGED WITH ANY OF THE FOLLOWING DIAGNOSIS: No VTE patient discharged on overlapping Therapy?: Yes Plan Time Spent: Greater than 30 Minutes - Follow outpatients cardiology in 1 week follow in office 1 week
[2018-09-20 12:44] VITALS: BP 146/85
== END 2018-09-20 13:50 | disposition home or self-care (01) ==
LOC: ER 09:44 → INTOOBSV 16:52 → OBSVTOIN 16:52 → EH 16:52 → 4N 18:35
PROVIDERS: ADMIT Family Medicine; ATTEND Family Medicine
DX: R07.9 Chest pain, unspecified (principal); I25.10 Atherosclerotic heart disease of native coronary artery without angina pectoris; J44.9 Chronic obstructive pulmonary disease, unspecified; F32.9 Major depressive disorder, single episode, unspecified; E78.5 Hyperlipidemia, unspecified; I11.0 Hypertensive heart disease with heart failure; I50.22 Chronic systolic (congestive) heart failure; E66.01 Morbid (severe) obesity due to excess calories; I47.2 Ventricular tachycardia; E11.8 Type 2 diabetes mellitus with unspecified complications; G47.30 Sleep apnea, unspecified; R09.02 Hypoxemia; M25.512 Pain in left shoulder; I25.2 Old myocardial infarction; Z79.899 Other long term (current) drug therapy; Z95.1 Presence of aortocoronary bypass graft; Z82.49 Family history of ischemic heart disease and other diseases of the circulatory system; Z79.02 Long term (current) use of antithrombotics/antiplatelets; Z79.4 Long term (current) use of insulin
CPT/HCPCS: 93005 ×2; 99285; 36415 ×2; 82553 ×2; 82962 ×2; 82550 ×2; 85025 ×2; 80048; 80053; 84484 ×2; 83880; 71045; 71275; 74174; 93010 ×2; G0378 ×3; J3490 ×14; J1815; J1650 ×2

== ENCOUNTER → 2019-07-18 | Outpatient (CLI) | payer MEDICAID ==
--- NOTE | 2019-07-18 12:41 | RADIOLOGY REPORT (SQ) ---
EXAM DESCRIPTION: CT CHEST WITHOUT COMPLETED DATE/TIME: 07/18/2019 10:06 am REASON FOR STUDY: COPD J44.9 CHRONIC OBSTRUCTIVE PULMONARY DISEASE, UNSPECIFIED COMPARISON: CT chest 09/19/2018, 11/17/2016 TECHNIQUE: CT scan performed of the chest without intravenous contrast. Images reviewed with lung, soft tissue and bone windows. Reconstructed coronal and sagittal MPR images reviewed. All images st ored on PACS. All CT scanners at this facility use dose modulation, iterative reconstruction, and/or weight based d osing when appropriate to reduce radiation dose to as low as reasonably achievable (ALARA). [facility]: Dose Right [facility]: CareDose [facility]: Dose Right [facility]: Teradose 4D [facility]: Sistemic RADIATION DOSE: CT Rad equipment meets quality standard of care and radiation dose reduction techniq ues were employed. CTDIvol: 19.5 mGy. DLP: 710 mGy-cm. mGy. LIMITATIONS: No technical limitations. FINDINGS: LUNGS AND PLEURA: No masses, infiltrates, or pneumothorax. No pleural effusions or pleura l calcifications. HILAR AND MEDIASTINAL STRUCTURES: No identified masses or abnormal nodes. No obvious aneurysm. HEART AND VASCULAR STRUCTURES: No aneurysm. No pericardial effusion. No cardiomegaly or pericardial of Sternotomy for CABG. No cardiomegaly. UPPER ABDOMEN: No significant findings. Limited exam. THYROID AND OTHER SOFT TISSUES: No masses. No adenopathy. BONES: Diffuse thoracic spine ankylosis HARDWARE: Anterior chest loop recorder. OTHER: No other significant findings. IMPRESSION: NO SIGNIFICANT FINDING ON NON-CONTRASTED CHEST CT. TECHNICAL DOCUMENTATION: JOB ID: [id number] Quality ID # [id number]: Final reports with documentation of one or more dose reduction techniques (e.g., Au tomated exposure control, adjustment of the mA and/or kV according to patient size, use of iterative reconstruction technique) 2010 [employer] ([employer] All Rights Reserved Reading location - IP/workstation name: [email or web address]
== END ==
LOC: RAD 09:49
PROVIDERS: ATTEND Registered Nurse
DX: J44.9 Chronic obstructive pulmonary disease, unspecified (principal)
CPT/HCPCS: 71250

== ENCOUNTER 2019-11-15 12:02 | Emergency (ER) | payer MEDICAID ==
[2019-11-15 12:28] LABS: ABSOLUTE BASOPHILS # (AUTO) 0.1 10^3/uL (0.0-0.2); ABSOLUTE EOSINOPHILS # (AUTO) 0.1 10^3/uL (0.0-0.6); ABSOLUTE MONOCYTES (AUTO) 0.5 10^3/uL (0.1-1.4); BASOPHILS % (AUTO) 1.1 % (0-2); EOSINOPHILS % (AUTO) 1.3 % (0-6); HEMATOCRIT 38.1 % (37.9-51.0); HEMOGLOBIN 13.2 g/dL (13.5-17.0); LYMPHOCYTES % (AUTO) 15.4 % (13-45); MEAN CORPUSCULAR HEMOGLOBIN 32.2 pg (27.0-33.4); MEAN CORPUSCULAR HGB CONC 34.6 g/dL (32.0-36.0); MEAN CORPUSCULAR VOLUME 93 fl (80-97); MONOCYTES % (AUTO) 8.1 % (3-13); PLATELET COUNT 193 10^3/uL (150-450); RED BLOOD COUNT 4.09 10^6/uL (4.35-5.55); RED CELL DISTRIBUTION WIDTH 15.4 % (11.5-14.0); SEGMENTED NEUTROPHILS % (AUTO) 74.1 % (42-78); TOTAL CELLS COUNTED % (AUTO) 100 %; WHITE BLOOD COUNT 6.7 10^3/uL (4.0-10.5)
[2019-11-15 12:45] LABS: ALBUMIN 4.1 g/dL (3.5-5.0); ALKALINE PHOSPHATASE 84 U/L (38-126); ANION GAP 8 (5-19); ASPARTATE AMINO TRANSFERASE 36 U/L (17-59); BILIRUBIN,DIRECT 0.1 mg/dL (0.0-0.4); BILIRUBIN,TOTAL 1.3 mg/dL (0.2-1.3); BLOOD UREA NITROGEN 13 mg/dL (7-20); CALCIUM 8.7 mg/dL (8.4-10.2); CARBON DIOXIDE 25 mmol/L (22-30); CHLORIDE 99 mmol/L (98-107); CREATINE KINASE 70 U/L (55-170); GLUCOSE 243 mg/dL (75-110); POTASSIUM 4.5 mmol/L (3.6-5.0); TOTAL PROTEIN 7.4 g/dL (6.3-8.2)
[2019-11-15 13:00] LABS: TROPONIN I < 0.012 ng/mL
--- NOTE | 2019-11-15 13:41 | ER Document Report ---
ED Cardiac - General Chief Complaint: Chest Pain Stated Complaint: CHEST PAIN Time Seen by Provider: 11/15/19 13:27 Primary Care Provider: ANAID KIRBY MD [NO LOCAL MD] - Follow up in 3-5 days CHICHO GREEN MD [Primary Care Provider] - Follow up as needed Notes: Patient is a 52-year-old male who presents to the emergency department with a chief complaint of chest pain. Patient states that it is a feeling similar to as when he had his myocardial infarction in 2012 in 2013. Patient also has history of a myocardial infarction in 2018. His manager community development is Dr. Kirby from [facility]. Patient states that he was on his way to his primary care providers today and started feeling a tingling sensation in his entire body. He was brought in by ambulance and was given 2 sprays of nitro. S tates his pain is much better. Patient also states that he had for 81 mg aspirins over at his primary care provider's office. TRAVEL OUTSIDE OF THE [place] IN LAST 30 DAYS: No - Related Data Allergies/Adverse Reactions: gabapentin Allergy (Intermediate, Verified 04/10/18 15:46) Hallucinations OSCAR Inhibitors Allergy (Mild, Verified 04/10/18 15:46) cough naproxen Allergy (Mild, Verified 04/10/18 15:46) trouble breathing Past Medical History - Social History Smoking Status: Unknown if Ever Smoked Family History: Reviewed & Not Pertinent Patient has homicidal ideation: No - Past Medical History Cardiac Medical History: Reports: Hx Coronary Artery Disease, Hx Heart Attack - x3, Hx Hypertension, Hx Heart Murmur Denies: Hx Congestive Heart Failure, Hx Hypercholesterolemia Pulmonary Medical History: Reports: Hx Asthma, Hx COPD - HX HYPOXIA WHEN SLEEPING USES 2 L WHEN SLEEPING Denies: Hx Bronchitis, Hx Pneumonia Neurological Medical History: Reports: Hx Seizures - ONE INCIDENT, DR CONCLUDED WAS LIKELY CAUSED FROM HYPOXIA. Denies: Hx Cerebrovascular Accident Endocrine Medical History: Reports: Hx Diabetes Mellitus Type 2 Renal/ Medical History: Denies: Hx Peritoneal Dialysis GI Medical History: Reports: Hx Gastroesophageal Reflux Disease. Denies: Hx Hepatitis, Hx Hiatal Hernia, Hx Ulcer Musculoskeletal Medical History: Reports Hx Arthritis Psychiatric Medical History: Reports: Hx Depression Infectious Medical History: Denies: Hx Hepatitis Past Surgical History: Reports: Hx Cardiac Catheterization, Hx Cardiac Surgery - CABG, STENTS, Hx Coronary Artery Bypass Graft - Three-vessel bypass on 09/17/2013, Hx Coronary Stent - Patient received stents before and after his bypass surgery, Hx Open Heart Surgery, Hx Orthopedic Surgery - L KNEE arthroscopic surgery 2. Denies: Hx Pacemaker - Immunizations Hx Diphtheria, Pertussis, Tetanus Vaccination: Yes - 2018 Hx Pneumococcal Vaccination: 06/19/12 Review of Systems - Review of Systems Notes: REVIEW OF SYSTEMS: CONSTITUTIONAL : Denies recent illness. Denies recent unintentional weight loss. Denies fever, chills, or sweats. EENT: Denies eye, ear, throat, or mouth pain, discharge, or symptoms. Denies nasal or sinus congestion. CARDIOVASCULAR: Denies chest pain. RESPIRATORY: Denies shortness of breath, cough, congestion, difficulty br eathing, or wheezing. GASTROINTESTINAL: Denies nausea, vomiting, and diarrhea. Denies abdominal pain. Denies constipation. GENITOURINARY: Denies difficulty urinating, burning, blood in urine, urgency or frequency. MUSCULOSKELETAL: Denies neck and back pain. Denies joint pain or swelling. SKIN: Denies rash, itchiness, or lesions HEMATOLOGIC : Denies easy bruising or bleeding. LYMPHATIC: Denies swollen, painful, enlarged glands. NEUROLOGICAL: Denies no numbness or tingling denies weakness. Denies headache. Denies altered mental status. Denies alteration in speech. PSYCHIATRIC: Denies stress, anxiety, alteration in sleep patterns, or depression. All other systems reviewed and negative. Physical Exam - Vital signs Vitals: Temp 98.2 F 11/15/19 12:02 - Notes Notes: PHYSICAL EXAMINATION: GENERAL: Appears well, obese, no acute distress. HEAD: Normocephalic, atraumatic. EYES: PERRL, conjunctiva normal, all extraocular movements intact, sclera nonicteric ENT: Moist mucous membranes. NECK: Supple, no noticeable swelling, redness, rash. Normal range of motion. LUNGS: Equal breath sounds bilaterally and clear to auscultation. No wheezes rales or rhonchi. CARDIOVASCULAR: S1-S2, regular rate, regular rhythm. Radial pulses 2+, normal. ABDOMEN: Normoactive bowel sounds. Soft, nontender, no guarding, no rebound tenderness, and no masses palpated. EXTREMITIES: Normal strength and range of motion, no pitting or edema. No cyanosis. NEUROLOGICAL: Moves all extremities upon command. Strength 5/5 in all extremities. PSYCH: Normal mood, normal affect. SKIN: Warm, dry. No rash, lesions, ulcerations noted. Normal skin turgor. Course - Re-evaluation Re-evalutation: 11/15/19 14:41 Hematology is unremarkable. Chemistries are also unremarkable, other than glucose of 243 and a mild hyponatremia of 131. LFTs are unremarkable. Initial troponin is negative. I spoke with Dr. Green. He would like me to speak with Dr. Kirby, the patient's manager community development. 11/15/19 15:[address] Kirby's office. Will await callback. 11/15/19 16:[address] Kirby. He would like to have the patient's second troponin drawn. If it is negative. He is ok with the patient being discharged. He would also like the patient to follow up with him in the office. 11/15/19 17:49 Patient second troponin is negative. Patient will follow-up with his manager community development. He is in agreement with this plan. Follow-up precautions were given. Verbal discharge instructions were given to the patient. They verbalized understanding. They are stable for discharge. - Vital Signs Vital signs: Temp Pulse Resp BP Pulse Ox 97.5 F 14 134/76 H 97 11/15/19 18:01 11/15/19 17:41 11/15/19 17:41 11/15/19 17:41 - Laboratory Result Diagrams: 11/15/19 12:15 11/15/19 12:15 Laboratory results interpreted by me: 11/15/19 11/15/19 12:15 12:15 RBC 4.09 L Hgb 13.2 L RDW 15.4 H Sodium 131.7 L Glucose 243 H - EKG Interpretation by Me Additional EKG results interpreted by me: 11/15/19 20:42 Sinus rhythm. Rate 73. WV 152; QRS 76; QT 404; QTc 446. No ST elevations or depressions noted. Discharge - Discharge Clinical Impression: Chest pain Condition: Stable Disposition: HOME, SELF-CARE Additional Instructions: You were seen today for chest pain. The exact cause of your pain is unclear. However, based on your cardiac enzyme testing, chest x-ray, and EKG it does not appear that it is from an immediately life-threatening cause at this time. Although your testing here is normal is critical that you follow-up with your primary care physician for continued evaluation of this chest pain and possible stress testing. I recommended you see your physician within the next 24-48 hours to be evaluated for consideration of a stress test. Please return to emergency department immediately if you have worsening of your chest pain, shortness of breath, vomiting, become unable to exert yourself due to pain or difficulty breathing, you pass out, or have any pain that radiates into your arms, jaw, or back. Please also return if you have any additional symptoms that are concerning to you. Please call Dr. Kirby if you have chest pain. Referrals: CHICHO GREEN MD [Primary Care Provider] - Follow up as needed ANAID KIRBY MD [NO LOCAL MD] - Follow up in 3-5 days
--- NOTE | 2019-11-15 14:27 | RADIOLOGY REPORT (SQ) ---
EXAM DESCRIPTION: CHEST SINGLE VIEW IMAGES COMPLETED DATE/TIME: 11/15/2019 2:19 pm REASON FOR STUDY: chest pain COMPARISON: AP view of the chest from 09/19/2018. EXAM PARAMETERS: NUMBER OF VIEWS: One view. TECHNIQUE: An AP view of the chest was obtained. RADIATION DOSE: NA LIMITATIONS: None. FINDINGS: LUNGS AND PLEURA: No consolidation, pleural effusion or pneumothorax. MEDIASTINUM AND HILAR STRUCTURES: No mediastinal or hilar contour abnormality. HEART AND VASCULAR STRUCTURES: The cardiac silhouette is enlarged. BONES: No acute findings. HARDWARE: Status post median sternotomy. There is an implantable cardiac monitoring device in place. OTHER: No other finding. IMPRESSION: No acute cardiopulmonary process. TECHNICAL DOCUMENTATION: JOB ID: [id number] 2010 [employer]- All Rights Reserved Reading location - IP/workstation name: [email or web address]
--- NOTE | 2019-11-15 15:37 | EKG REPORT ---
SEVERITY:- NORMAL ECG - SINUS RHYTHM : Confirmed by: Huseyin Barksdale MD 15-Nov-2019 15:36:25
[2019-11-15 17:52] VITALS: BP 134/76
== END 2019-11-15 18:02 | disposition home or self-care (01) ==
LOC: ER 12:02
DX: R07.9 Chest pain, unspecified (principal); I25.2 Old myocardial infarction; Z88.8 Allergy status to other drugs, medicaments and biological substances; I25.10 Atherosclerotic heart disease of native coronary artery without angina pectoris; I10 Essential (primary) hypertension; J44.9 Chronic obstructive pulmonary disease, unspecified; E11.9 Type 2 diabetes mellitus without complications
CPT/HCPCS: 36415; 71045; 80053; 82550; 82553; 84484; 85025; 93005; 93010; 99285